=== PATIENT | female | born 1970 | race Caucasian/White ===

== ENCOUNTER 2024-12-22 16:06 | Inpatient (IN) | payer MEDICAID ==
[~2024-12-22] VITALS: Ht 167.6 cm; Wt 130.0 kg
[2024-12-23] VITALS (36 sets, daily range): BP systolic 27–233; BP diastolic 16–223; PULSE 58–98; RESP 14–23; TEMP 99.6–100.8; O2SAT 93–98
[2024-12-23] MEDS: SODIUM CHL 0.9% 50 ML ONE (09:04)
[2024-12-23] MEDS: PHENYLEPHRINE IV 250 ML IV ONE (16:09)
--- NOTE | 2024-12-23 16:37 | DVHINCON2 ---
Date Seen: Dec 23, 2024 Referring Physician MD Neha Reason for Consultation VFib arrest History of Present Illness This is a 54-year-old female patient who presents to this facility status post VFib arrest. The patient was initially seen at [facility] where she presented for bilateral lower extremity edema for two months. During the course of that hospitalization, the patient had VFib arrest (rhythm strips reviewed---brought by EMS). According to documentation provided by [facility], the patient had three episodes of VFib arrest in which she underwent CPR and achieved return of spontaneous circulation. She has been transferred to this facility for higher level of care. At the time of assessment, the patient is chemically sedated and mechanically ventilated. There are no laboratory values available from this facility given the patient just arrived. Patient is in sinus tachycardia on youth nutritional monitor at time of assessment. History obtained from patient's Keshav. Significant past medical history includes congestive heart failure, hypertension, dyslipidemia, type 2 diabetes mellitus, tobacco use, history of polysubstance use and morbid obesity. He also mentions that the patient drinks vodka daily and is not compliant with her prescribed medications. Past Medical History Past medical history reviewed. No other significant than mentioned above. Past Surgical History Denies any previous surgeries Family History Family history reviewed. Social History Daily consumption of vodka Prior history of methamphetamine use, quit approximately 10 years ago Fifteen pack-year history, smokes a half pack per day Home Meds Home medications reviewed. Review of Systems Constitutional: No symptom reported Ears, Nose, & Throat: No symptom reported Eyes: No symptom reported Neurological: No symptoms reported Pulmonary/Respiratory: No symptoms reported Cardiovascular: VFib arrest Gastrointestinal: No symptom reported Genitourinary: No symptom reported Musculoskeletal: No symptom reported Skin: No symptom reported Psychiatric: No symptom reported Endocrine: No symptom reported Hematologic/Lymphatic: No symptom reported Physical Exam General Appearance: Calm, relaxed. Morbidly obese Pulmonary/Respiratory: Clear, bilateral breaths sounds. Cardiovascular/Chest: Regular rate and rhythm. Peripheral Pulses: 2+ Radial (R). 2+ Radial (L). Abdominal Exam: Normal bowel sounds Ankle Exam: A +pitting edema Lower extremities: 3+ pitting edema Neuro/Mental Status: Chemically sedated Thoughts/Psych: Deferred Appearance: No acute distress. Skin Exam: Cyanosis to bilateral feet. Arrhythmia to bilateral lower extremities Assessment Ventricular fibrillation arrest status post cardiopulmonary resuscitation Rule out coronary artery disease Rule out structural heart disease Hypertension Dyslipidemia Type 2 diabetes mellitus Tobacco use Alcohol use History of methamphetamine use Morbid obesity Medical noncompliance Plan/Recommendation We will continue with the following plan/recommendations (Dr. Stockton): Case discussed with . The patient was transferred to this facility from [facility]. [employer] accepted patient from sales representative metals Dr. Solomon. According to records, the patient went into VFib arrest multiple times and is status post CPR with return of spontaneous circulation. The patient is currently on vasopressors for hemodynamic support. The patient will undergo a coronary angiogram with left heart catheterization.The procedure was discussed with the patient's Keshav in full detail including risks and benefits. Risks include but are not limited to bleeding, contrast-induced nephropathy, coronary dissection, stroke, and even . The patient's understands and is agreeable for the patient to undergo the procedure. The patient will be taken to the laboratory sample carrier at soonest availability. Thank you for allowing us to care for this patient. Please call with any questions or concerns. Critical care time spent: 44 minutes This medical document was created using an electronic medical record system with voice recognition software and computerized dictation system. Although this document has been carefully reviewed, there might still be some phonetic and typographical errors. Occasional wrong-word or ``sound-alike substitutions may have occurred due to the inherent limitations of voice recognition software. These areas are purely typographical due to imperfections of the software programs and do not reflect any compromise in the patient's medical care. Please read the chart carefully and recognize, using context, where these substitutions have occurred. Plan discussed with: Spouse NYHA Physical activity limitations: NA Date of Service: Dec 23, 2024 Billing Provider: DL MENDES Cardiology Common Codes: 77980-QJDGNZU INP/OBS CARE (High) Cardiology Consultation Codes: 17999-CYTPWNOLS CONSULT <45MIN DL MENDES Dec 23, 2024 16:37
[2024-12-23] MEDS: IODIXANOL 320MG/ML 100ML BTL IV ONE (16:42)
[2024-12-23] MEDS: HEPARIN IN NS 1000Units/500mL 1,500 ML ONE (16:43)
[2024-12-23] MEDS: ANGIOMAX 250 MG VIAL IV ONE (16:48)
[2024-12-23] MEDS: LIDOCAINE 2%HCL (LOCAL ANESTH.) INJ 20ML MDV ONE (16:48)
[2024-12-23 17:03] LABS: Hematocrit 43.1 % (36.0-46.0); Hemoglobin 13.9 g/dL (12.2-16.2); Mean Corpuscular Hemoglobin 30.6 pg (28.0-32.0); Mean Corpuscular Volume 94.6 fL (80.0-100.0); Nucleated Red Blood Cells % 0.1 %
[2024-12-23 17:10] LABS: Calcium 8.9 mg/dL (8.7-10.4); Carbon Dioxide 31 mmol/L (20-31)
[2024-12-23 17:15] LABS: BUN/Creatinine Ratio 16.7 (10.0-20.0)
[2024-12-23 17:16] LABS: Magnesium 2.0 mg/dL (1.6-2.6)
[2024-12-23 17:17] LABS: Cholesterol 102 mg/dL (< 200); INR 1.31 (0.9-1.15); Partial Thromboplastin Time 33.2 SEC (24.5-34.5); Prothrombin Time 13.5 sec (9.3-11.8)
[2024-12-23 17:27] LABS: Blood Urea Nitrogen 24 mg/dL (9-23); Glucose 121 mg/dL (74-106); HDL Cholesterol 19 mg/dL (40-59); Triglycerides 152 mg/dL (< 150)
--- NOTE | 2024-12-23 18:16 | DVHOP2 ---
Operative Report - 2 Report Details Date: 12/23/24 Preop Diagnosis: Status post cardiac arrest. Postop Diagnosis: Cardiogenic shock. Septic shock. Severe left main disease. Surgeon: Ronaldo Stockton MD Anesthesiologist: Conscious sedation Anesthesia: Mac, Local Consent: The patient was informed of the risks and benefits of the procedure. These include but are not limited to complications of anesthesia, postoperative infection, incomplete relief of symptoms, recurrence of symptoms, damage to blood vessels, nerves and tendons, deep venous thrombosis, pulmonary embolism and possible need for repeat surgery in the future. Complications: No complications Findings: Severe left main disease. Cardiogenic shock. Cardiomyopathy. Dilated ischemic cardiomyopathy. Indications for Surgery: Cardiogenic shock. Status post cardiac arrest Name of Procedure Performed Left heart catheterization right heart catheterization. Bilateral cine coronary angiography. Left ventriculography. Procedure Details Procedure Details: Prior local anesthesia with 2% lidocaine to the right groin and full informed consent obtained the patient was prepped and draped in usual fashion followed by placement of a six Macedonian sheath into the right femoral artery through which six Macedonian Kathleen catheters were used to cannulate both right and left coronary ostia and a six Macedonian pigtail was used for ventriculography. A six Macedonian sheath was advanced into the right femoral vein and a Woodbourne-Susy catheter was advanced into the right atrium right ventricle pulmonary artery capillary wedge pressure positions where pressures were obtained and recorded. Cardiac outputs determined by the thermodilution technique in triplicate. O2 saturations were not obtained Hemodynamics: Right atrial pressure was 15. Right ventricular pressure was 50/15. Pulmonary artery pressure was 50/30. End-diastolic pressure was 25-30. Left ventricular end-diastolic pressure was 25. Aortic blood pressure was 90/60. No gradient across the aortic valve on pullback. Cardiac output was approximately 4.2 by the thermodilution technique. Coronary anatomy: The RCA is a large vessel it is dominant. It is normal in its proximal mid and distal segments PDA and posterolateral branches are normal. : The left main is a large vessel it has an ostial 75-85% stenosis. It is hazy it is difficult to fully visualize. It gives off left anterior descending coronary artery. The left anterior descending is large and is free of significant disease. Diagonals and septals are normal. The circumflex is large with two obtuse marginal branches free of significant disease. Ventriculography in the GOODWIN projection shows an EF of 10%. Dilated left ventricle. Impression: Elevated left ventricular end-diastolic pressure at rest. Elevated capillary wedge pressure. Pulmonary hypertension. Severe left main disease. Markedly decreased left ventricular ejection fraction. Recommendations: Patient has a very high mortality. We will leave a Woodbourne-Susy catheter in place. Optimize hemodynamics as much as possible. Consider high- risk angioplasty with Impella support if patient stabilizes. Poor overall prognosis family is made aware. Condition Critical Disposition Still a Patient Date of Service: Dec 23, 2024 Billing Provider: RONALDO STOCKTON Sr., MD Cardiology Common Codes: 11014-CZMDGPT INP/OBS CARE (High) Cardiology Procedure Codes: 74603-CDHA HEART CATH W/INTRA INJ, 00148-P/R & L HEART CATH FOR LVG, 79717-ZBL & PLCMT OF FLOW DIR CATH RONALDO STOCKTON Sr., MD Dec 23, 2024 18:15
[2024-12-23 18:17] LABS: Hematocrit 44.1 % (36.0-46.0); Hemoglobin 14.2 g/dL (12.2-16.2); Mean Corpuscular Hemoglobin 30.7 pg (28.0-32.0); Mean Corpuscular Volume 95.6 fL (80.0-100.0); Nucleated Red Blood Cells % 0.3 %
[2024-12-23] MEDS: PROPOFOL 100 ML IV SCH (18:30)
[2024-12-23 18:33] LABS: Anion Gap 9 (5-15)
[2024-12-23 18:35] LABS: Chloride 106 mmol/L (98-107); Potassium 4.7 mmol/L (3.5-5.1); Sodium 146 mmol/L (136-145)
[2024-12-23] MEDS: VASOPRESSIN 20 UNITS in SODIUM CHL 0.9% 99 ML IV SCH (18:45)
[2024-12-23 19:46] LABS: Base Excess 3.3 mmol/L (-2.0-3.0)
[2024-12-23 19:54] LABS: Alanine Aminotransferase 36 U/L (7-40); Anion Gap 12 (5-15); BUN/Creatinine Ratio 18.6 (10.0-20.0); Carbon Dioxide 30 mmol/L (20-31); Chloride 105 mmol/L (98-107); Potassium 4.8 mmol/L (3.5-5.1); Total Protein 6.3 g/dL (5.7-8.2)
[2024-12-23 19:57] LABS: Albumin 3.1 g/dL (3.2-4.8); Alkaline Phosphatase 132 U/L (46-116); Bilirubin, Total 2.4 mg/dL (0.2-1.0); Blood Urea Nitrogen 26 mg/dL (9-23); Calcium 8.6 mg/dL (8.7-10.4); Glucose 124 mg/dL (74-106); Sodium 147 mmol/L (136-145)
[2024-12-23] MEDS: PHENYLEPHRINE INJ 80 MG in SODIUM CHL 0.9% 242 ML IV SCH (19:59)
[2024-12-23 20:00] LABS: Lactic Acid w/Reflex 2.8 mmol/L (0.4-2.0)
[2024-12-23] MEDS: NOREPINEPHRINE BITARTRATE 32 MG in SODIUM CHL 0.9% 218 ML IV SCH (20:19)
--- NOTE | 2024-12-23 20:26 | DVHHPRES ---
History of Present Illness Resident Creating Document: LAISHA HALL RESIDENT History of Present Illness Patient is a 54-year-old male with a medical history of congestive heart failure, hypertension, type 2 diabetes mellitus, hypertension, polysubstance use, morbid obesity was brought in to the hospital after she underwent c ardiopulmonary arrest at [facility] where she was admitted for bilateral lower extremity edema for 2 months and worsening shortness of breath. According to documentation from the previous hospital patient had 3 episodes of VFib arrest in which she underwent CPR and achieved ROSC. She was transferred related to [facility] for higher level of care. Past medical history: As per HPI Past surgical history: None Social history: Patient lives with the her partner and has prior history of methamphetamine use, smokes half a pack per day and has 15 pack year smoking history Review of Systems Review of Systems Seen and examined at the bedside Sedated and on mechanical ventilation Allergies: Coded Allergies: NO KNOWN ALLERGIES (Unverified , 12/23/24) Medications Current Medications Medications Dose Ordered Sig/Malcolm Route Start Time Stop Time Status Last Admin Dose Admin Phenylephrine HCl 80 mg/Sodium Chloride 250 ml @ 7.5 mls/hr Q24H IV 12/23/24 17:30 Norepinephrine Bitartrate 32 mg/ Sodium Chloride 250 ml @ 0.938 mls/ hr Q24H IV 12/23/24 17:30 Propofol 100 ml @ 3.9 mls/hr Q24H IV 12/23/24 18:30 Midazolam HCl 50 ml @ 1 mls/hr Q24H IV 12/23/24 18:30 Pantoprazole Sodium 40 mg DAILY IV 12/24/24 10:00 Vasopressin 20 units/Sodium Chloride 100 ml @ 9 mls/hr Q11H7M IV 12/23/24 18:45 Enoxaparin Sodium 40 mg DAILY SC 12/24/24 10:00 UNV Exam Vital Signs Vital Signs Date Time Temp Pulse Resp B/P (MAP) Pulse Ox O2 Delivery O2 Flow Rate FiO2 12/23/24 16:32 90 22 138/100 (113) 97 55 Exam Gen - no pallor, no icterus, no cyanosis, no clubbing, 3+ bilateral lower ex tremity pitting edema . Skin - Patients skin is warm and dry. Reddish discoloration on bilateral lower extremities HEENT - normocephalic, atraumatic, dry mucous membranes. Neck - JVD could not be assessed Pulmonary - B/L decreased breath sounds with rales cardiovascular - regular S1,S2 heard, no added sounds, no murmurs heard. GI - soft, obese abdomen. Bowel sounds hypoactive Neurological - patient is on mechanical ventilation and sedated. Bilateral pupils equal and reactive, gag reflex hypoactive since the patient is sedated Labs/Xrays Labs Test 12/23/24 19:50 12/23/24 19:40 12/23/24 19:01 12/23/24 16:46 Range/Units Blood Gas Specimen Type Mixed venous Blood Gas Sample Site Other Blood Gas Patient Temperature 37.0 Arterial Blood Date Drawn [id number] Lee Test N/a Mixed Venous Blood PO2 < 36.5 35.0-45.0 mmHg Mixed Venous Blood O2 Saturation 63.0 L 75.0-99.0 % Mixed Venous Blood Oxyhemoglobin 62.3 60.0-80.0 % Mixed Venous Bld Carboxyhemoglobin 0.8 0.0-3.9 % Mixed Venous Blood Methemoglobin 0.3 0.0-0.5 % Blood Gas Total Hemoglobin 14.80 12.0-16.0 g/dL Blood Gas Set Respiration Rate 22.0 Blood Gas Modality Vent - ac FiO2 % 55.0 Blood Gas Tidal Volume 450.0 Blood Gas PEEP or CPAP 8.0 Blood Gas Comments via pa swan-susy Arterial Blood pH 7.438 7.350-7.450 Arterial Blood Partial Pressure CO2 42.2 32.0-45.0 mmHg Arterial Blood Partial Pressure O2 96.7 83.0-108.0 mmHg Arterial Blood HCO3 27.9 21.0-28.0 mmol/L Arterial Blood Oxygen Saturation 97.2 94.0-98.0 % Arterial Blood Base Excess 3.3 H -2.0-3.0 mmol/L Arterial Blood Oxyhemoglobin 96.2 94.0-98.0 % Arterial Blood Carboxyhemoglobin 0.6 0.5-1.5 % Arterial Blood Methemoglobin 0.4 0.0-1.5 % Sodium Level 147 H 136-145 mmol/L Potassium Level 4.8 3.5-5.1 mmol/L Chloride Level 105 98-107 mmol/L Carbon Dioxide Level 30 20-31 mmol/L Anion Gap 12 5-15 Blood Urea Nitrogen 26 H 9-23 mg/dL Creatinine 1.40 H 0.550-1.02 mg/dL Glomerular Filtration Rate Calc 45 >90 mL/min BUN/Creatinine Ratio 18.6 10.0-20.0 Serum Glucose 124 H 74-106 mg/dL Lactic Acid Level 2.8 *H 0.4-2.0 mmol/L Calcium Level 8.6 L 8.7-10.4 mg/dL Total Bilirubin 2.4 H 0.2-1.0 mg/dL Aspartate Amino Transferase (AST) 105 H 13-40 U/L Alanine Aminotransferase (ALT) 36 7-40 U/L Alkaline Phosphatase 132 H 46-116 U/L Total Protein 6.3 5.7-8.2 g/dL Albumin 3.1 L 3.2-4.8 g/dL Eosinophils (%) (Auto) 2.3 0.0-7.0 % Eosinophils # (Auto) 0.2 0-0.8 10 ^3/uL Basophils # (Auto) 0.1 0-0.2 10 ^3/uL Nucleated Red Blood Cells 0.3 % Prothrombin Time 13.5 H 9.3-11.8 sec Prothrombin Time INR 1.31 H 0.9-1.15 Activated Partial Thromboplast Time 33.2 24.5-34.5 SEC Magnesium Level 2.0 1.6-2.6 mg/dL Triglycerides Level 152 H < 150 mg/dL Cholesterol Level 102 < 200 mg/dL LDL Cholesterol 66 < 100 mg/dL HDL Cholesterol 19 L 40-59 mg/dL Thyroid Stimulating Hormone (TSH) 1.57 0.55-4.78 uIU/mL Test 12/23/24 16:24 Range/Units POC Glucose 129 H 70-106 mg/dl SEPSIS Sepsis Screen Physician Orders Ventilator Orders (12/23/24 16:04) Obtain Consent For: (12/23/24 16:34) Shave Both Groins (12/23/24 16:34) Provide Education Materials (12/23/24 16:34) Obtain Consent For Anesthesia (12/23/24 16:34) Echo 2d Mode Cardiac Dop (12/23/24 16:34) Electrocardigram (12/23/24 16:42) Cl Left Heart Cath (12/23/24 16:48) Sodium Chl 0.9% (Ns... W/Phenylephrine I (12/23/24 17:30) Sodium Chl 0.9% (Ns... W/Norepinephrine (12/23/24 17:30) Admit (12/23/24 17:41) Notify Of Changes From Base (12/23/24 17:41) Propofol (Diprivan) (12/23/24 18:30) Midazolam Drip 50 Mg/50ml (Versed Drip 5 (12/23/24 18:30) Pantoprazole (Protonix) (12/24/24 10:00) Sodium Chl 0.9% (So... W/Vasopressin (12/23/24 18:45) Npo Except For Medications (12/23/24 18:33) Npo (Nothing By Mouth) Diet (12/23/24 Breakfast) Magnesium (12/24/24 04:00) Phosphorus (12/24/24 04:00) Comprehensive Metabolic Panel (12/24/24 04:00) Complete Blood Count (12/24/24 04:00) Strict I & O Q4HR (12/23/24 18:33) Urinalysis (12/23/24 18:33) Urine Bacterial Culture (12/23/24 18:33) Blood Culture (12/23/24 18:33) Respiratory Culture W/ Gs (12/23/24 18:33) Abg W/ Co-Ox (12/23/24 18:33) Complete Blood Count (12/23/24 18:45) Venous Blood Gas (12/23/24 18:45) Communication Order (12/23/24 18:47) Communication Order (12/23/24 18:51) Chest Portable (12/23/24 19:28) Enoxaparin Sodium (Lovenox) (12/24/24 10:00) Vital Signs Date Time Temp Pulse Resp B/P (MAP) Pulse Ox O2 Delivery O2 Flow Rate FiO2 12/23/24 16:32 90 22 138/100 (113) 97 55 Laboratory Tests Test 12/23/24 16:32 12/23/24 16:46 12/23/24 19:01 White Blood Count 9.6 10^3/uL (4.4-10.8) 9.8 10^3/uL (4.4-10.8) Pending Lactic Acid Level 2.8 mmol/L (0.4-2.0) *H Assessment/Plan Assessment/Plan Acute hypoxic respiratory failure likely from cardiogenic shock Pulmonary hypertension likely type 1 versus type 2 Bilateral pulmonary edema Left pleural effusion - mechanical ventilation 5 FIO2 50% Vt 450 - IV diuresis ( maintaining map of more than 65 and a capillary wedge pressure 20) Cardiogenic shock Ventricular fibrillation status post cardiopulmonary arrest with ROSC Acute on chronic heart failure exacerbation with reduced ejection fraction 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 SVR 1283 - we will diurese the patient currently with a 1 dose of 40 Lasix IV - maintain map of more than 65 - vasopressors currently on norepinephrine, trending down on the phenylephrine - amiodarone at 0.5 mg/minute, lidocaine at 2 mL/minute - keep potassium above 4.2 and Mag above 2.2 - strict input and output - as per customer service consultant, high-risk angioplasty with Impella support to be considered at a later date if patient stabilizes Goals of care discussed with the patient's family including boyfrienjessy Gomez, explained about patient's critical condition and poor prognosis for over 27 minutes. Full code Critical care time spent excluding procedures: 120 minutes Plan discussed with Dr. Zamarripa Plan discussed with: Other (Boyfriend, SHIMON Peraza) My Orders Orders - LAISHA HALL Procedure Category Date Status Time Enoxaparin Sodium PHA 12/24/24 Logged (Lovenox) 10:00 Date of Service: Dec 23, 2024 Billing Provider: CORTEZ ZAMARRIPA MD Common Visit Codes: 17744-LZSSQHOX CARE 30-74 MIN, 30914-JLLCNEPH CARE-EACH +30MIN (crit care time 120 minutes) Secondary Visit Codes: 33199-CFCXDHJJ CARE PLAN 30 MINUTES LAISHA HALL Dec 23, 2024 20:26 CORTEZ ZAMARRIPA MD Dec 23, 2024 23:49
--- NOTE | 2024-12-23 20:28 | PRN ---
Misceleneous Note Note Note 12/23 19.00 Height 167 Weight 130 BSA 2.46 SaO2 97 SvO2 63 Hb 14 Lact 2.8 HR 73 CO 4.8 CI 2.0 MAP 95 CVP 18 SVR 1283 12/24 10.00 Height 167 Weight 130 BSA 2.46 SaO2 97 SvO2 60 Hb 12 Lact 2.2 HR 71 CO 5.2 CI 2.1 MAP 75 CVP 12 SVR 969 CORTEZ TENA MD Dec 23, 2024 20:28
[2024-12-23 20:51] LABS: Hematocrit 45.8 % (36.0-46.0); Hemoglobin 14.3 g/dL (12.2-16.2); Mean Corpuscular Hemoglobin 30.6 pg (28.0-32.0); Mean Corpuscular Volume 97.8 fL (80.0-100.0); Nucleated Red Blood Cells % 0.2 %
[2024-12-23] MEDS: FUROSEMIDE 40 MG/4 ML VIAL IV ONE (21:11)
[2024-12-23] MEDS: MAGNESIUM SULFATE 1GM/100ML 100 ML IV ONE (21:17)
--- NOTE | 2024-12-23 21:20 | DVH ---
CHEST RADIOGRAPH Indication: interval Technique: Single frontal view of the chest was obtained Comparison: XR CHEST 1 VIEW on DOS: 12/21/24, XR CHEST 1 VIEW on DOS: 12/18/24, XR CHEST 1 VIEW on DOS: 02/01/20 FINDINGS: Lines and Tubes: Endotracheal tube is 4.9 cm above the carrie. Right internal jugular catheter is in the superior vena cava above the right atrium. Enteric tube below the left diaphragm in the stomach Lungs: No focal consolidation. Pleura: No effusion. No pneumothorax. Cardiomediastinal contours: Unremarkable Bones: No acute osseous abnormality. IMPRESSION: 1. Mild cardiomegaly 2. Mildly prominent pulmonary vascular markings. Endotracheal tube in place 4.9 cm above the carrie. 3. Right internal jugular catheter in the superior vena cava above the right atrium. 4. Enteric tube below the left diaphragm in the stomach.
[2024-12-23] MEDS: LIDOCAINE 4MG/ML IV SOLN 500 ML IV SCH (22:11)
[2024-12-23] MEDS: MIDAZOLAM DRIP 50 mg/50mL 50 ML IV SCH (22:11)
[2024-12-23 22:25] LABS: Base Excess 4.2 mmol/L (-2.0-3.0)
[2024-12-23] MEDS: fentaNYL Drip 2500mCg/250mlNS 250 ML IV SCH (22:45)
--- NOTE | 2024-12-23 22:55 | DVH ---
Bilateral lower extremity venous duplex Clinical History: b/l lower ext swelling Comparison: None Technique: Duplex Doppler evaluation of the deep venous systems of both lower extremities from the common femora l veins to the popliteal veins including color Doppler and spectral/pulsed waveform analysis was perf ormed. Findings: RIGHT SIDE: The common femoral, great saphenous and proximal superficial femoral veins were not adequately visual ized. The midportion superficial femoral vein demonstrates appropriate compressibility and waveform variabi lity. The popliteal vein demonstrates appropriate compressibility and waveform variability. There is normal compressibility at the tibioperoneal trunk. LEFT SIDE: The common femoral vein demonstrates appropriate compressibility and waveform variability. There is compressibility/patency of the great saphenous vein at the proximal thigh. The femoral vein demonstrates appropriate compressibility and waveform variability. The deep femoral vein demonstrates appropriate compressibility and waveform variability. The popliteal vein demonstrates appropriate compressibility and waveform variability. There is normal compressibility at the tibioperoneal trunk. Moderately enlarged left inguinal lymph node measures up to 3.6 cm. Impression: 1. No right or left femoropopliteal venous thrombosis within the visualized vascular structures. 2. Moderately enlarged left inguinal lymph node measures up to 3.6 cm.
[2024-12-23] MEDS ORDERED: VANCOMYCIN PER PHARMACY 0 MG IV SCH (23:45)
[2024-12-24] VITALS (110 sets, daily range): BP systolic 25–128; BP diastolic 18–85; PULSE 63–82; RESP 11–23; TEMP 98–98.4; O2SAT 65–100
[2024-12-24 00:12] LABS: Hematocrit 41.0 % (36.0-46.0); Hemoglobin 13.2 g/dL (12.2-16.2); Mean Corpuscular Hemoglobin 30.3 pg (28.0-32.0); Mean Corpuscular Volume 94.3 fL (80.0-100.0); Nucleated Red Blood Cells % 0.1 %
[2024-12-24 00:25] LABS: INR 1.28 (0.9-1.15); Partial Thromboplastin Time 32.5 SEC (24.5-34.5); Prothrombin Time 13.2 sec (9.3-11.8)
[2024-12-24 00:40] LABS: Potassium 4.2 mmol/L (3.5-5.1)
[2024-12-24 00:47] LABS: Magnesium 2.1 mg/dL (1.6-2.6)
[2024-12-24] MEDS: VANCOMYCIN 1GM/250ML IV ONE ×2 (00:51→01:00)
[2024-12-24] MEDS: HEPARIN SODIUM (PORCINE) 5000 UNITS/ML 1ML VIAL IV ONE (01:11)
[2024-12-24] MEDS: HEPARIN DRIP/D5W 100UNITS/ML 250 ML IV SCH ×2 (01:17→10:48)
[2024-12-24] MEDS: CEFEPIME 1GM/50ML 50 ML IV ONE (02:21)
[2024-12-24 03:30] LABS: Hematocrit 40.8 % (36.0-46.0); Hemoglobin 13.1 g/dL (12.2-16.2); Mean Corpuscular Hemoglobin 30.6 pg (28.0-32.0); Mean Corpuscular Volume 95.2 fL (80.0-100.0); Nucleated Red Blood Cells % 0.1 %
[2024-12-24] MEDS: AMIODARONE 360mg/200mL PREMIX 200 ML IV SCH (03:40)
[2024-12-24 03:51] LABS: Alanine Aminotransferase 29 U/L (7-40); Albumin 3.0 g/dL (3.2-4.8); Alkaline Phosphatase 117 U/L (46-116); Anion Gap 11 (5-15); BUN/Creatinine Ratio 16.9 (10.0-20.0); Blood Urea Nitrogen 21 mg/dL (9-23); Calcium 8.7 mg/dL (8.7-10.4); Carbon Dioxide 29 mmol/L (20-31); Chloride 105 mmol/L (98-107); Glucose 155 mg/dL (74-106); Magnesium 2.0 mg/dL (1.6-2.6); Potassium 4.0 mmol/L (3.5-5.1); Sodium 145 mmol/L (136-145); Total Protein 6.3 g/dL (5.7-8.2)
[2024-12-24 03:56] LABS: Bilirubin, Total 2.2 mg/dL (0.2-1.0)
[2024-12-24] MEDS: POTASSIUM CHL 20MEQ/100ML 100 ML IV SCH ×2 (05:48→15:30)
[2024-12-24] MEDS ORDERED: FUROSEMIDE 40 MG/4 ML VIAL IV SCH (06:00)
[2024-12-24] MEDS: LIDOCAINE 4MG/ML IV SOLN 500 ML IV SCH (07:00)
[2024-12-24] MEDS ORDERED: HEPARIN DRIP/D5W 100UNITS/ML 250 ML IV SCH (07:45)
[2024-12-24 07:58] LABS: INR 1.28 (0.9-1.15); Partial Thromboplastin Time 66.4 SEC (24.5-34.5); Prothrombin Time 13.2 sec (9.3-11.8)
--- NOTE | 2024-12-24 08:27 | DVH ---
CHEST RADIOGRAPH Indication: ET intubation Technique: Single frontal view of the chest was obtained COMPARISON: XY CHEST PORTABLE on DOS: 12/23/24, CT ANGIO CHEST on DOS: 12/21/24, XR CHEST 1 VIEW on DO S: 12/21/24, XR CHEST 1 VIEW on DOS: 12/18/24, XR CHEST 2 VIEWS on DOS: 05/27/22 FINDINGS: Lines and Tubes: Endotracheal tube, enteric catheter and right central venous catheter in satisfactor y position. Lungs: Unchanged pulmonary vascular congestion. Pleura: No effusion. No pneumothorax. Cardiomediastinal contours: Unchanged cardiomegaly. Bones: Unremarkable. IMPRESSION: Lines and tubes in satisfactory position. No significant interval change.
[2024-12-24] MEDS: MAGNESIUM SULFATE 1GM/100ML 100 ML IV SCH (08:59)
--- NOTE | 2024-12-24 09:12 | CONS ---
Pharmacy Clinical Information: HEPARIN PER ACS PROTOCOL: APTT result of 66.4 received from draw on 12/24/24 @0700. Continue rate of 1000 units per hour (10ml/hr). Orders read back and confirmed with SHIMON Draper @0912. Next APTT scheduled for 1300. ALVIN MARIN PHARMACIST Dec 24, 2024 09:12
[2024-12-24 09:59] LABS: Base Excess 2.8 mmol/L (-2.0-3.0)
[2024-12-24] MEDS ORDERED: ENOXAPARIN SOD 40 MG/0.4 ML SYRINGE SC SCH (10:00)
[2024-12-24] MEDS: FUROSEMIDE 40 MG/4 ML VIAL IV ONE ×2 (10:15→17:13)
[2024-12-24] MEDS: CEFEPIME 1GM/50ML 50 ML IV SCH (10:44)
[2024-12-24] MEDS: PANTOPRAZOLE 40 MG/10 ML VIAL INJ IV SCH (10:45)
--- NOTE | 2024-12-24 12:35 | ECG ---
[facility] Test Date: 2024-12-23 Test Time: 16:50:34 Pat Name: ALFREDITO SPURLOCKV[place]LE Department: ICU Room: [address] [place] [address] A Gender: F Director Chemistry: Robel Cohen : 1970 Requested By: RONALDO STOCKTON Order Number: [id number] Reading MD: Ronaldo Stockton Measurements Intervals [place] Rate: 84 P: 20 IN: 159 QRS: 64 QRSD: 134 T: 59 QT: 423 QTc: 501 Interpretive Statements Sinus rhythm Probable left atrial enlargement Left ventricular hypertrophy Anterior infarct, old Electronically Signed On 12-24-2024 20:01:01 PDT by Ronaldo Stockton Please click the below link to view image of tracing.
[2024-12-24] MEDS: VANCOMYCIN 1GM/250ML KIT 250 ML IV SCH (13:05)
[2024-12-24 13:30] LABS: INR 1.23 (0.9-1.15); Partial Thromboplastin Time 62.6 SEC (24.5-34.5); Prothrombin Time 12.8 sec (9.3-11.8)
--- NOTE | 2024-12-24 13:39 | DVHPNRES ---
Progress Note Date Seen: Dec 24, 2024 Resident Creating Document: RENATO BARTLETT RESIDENT Medical Necessity Reason Pt with a Central, PICC or Fol: Yes The following are medically ne: Central Line Reason for goldstein catheter: Strict I&O Subjective Review of Systems Patient seen and examined in ICU Currently on ventilation with respiratory rate 22, tidal volume 450, FiO2 45%, peep of five CVP ranging between 10-14 Currently on amiodarone drip, lidocaine drip, heparin drip, midazolam, propofol, norepinephrine. Patient has right femoral [place]-Susy, right IJ central line, left radial A-line. No any other night events Objective vital signs Vital Sign Date Time Temp Pulse Resp B/P (MAP) Pulse Ox O2 Delivery O2 Flow Rate FiO2 12/24/24 11:55 75 22 96/54 (68) 96 40 12/24/24 11:15 98.4 98.4 12/24/24 10:00 Mechanical Ventilator+ Total Intake and Output 12/23/24 12/23/24 12/24/24 15:00 23:00 07:00 Intake Total 642.066 ml 731.174 ml Output Total 2350 ml Balance 642.066 ml -1618.826 ml medications Current Medications Medications Dose Ordered Sig/Malcolm Route Start Time Stop Time Status Last Admin Dose Admin Phenylephrine HCl 80 mg/Sodium Chloride 250 ml @ 7.5 mls/hr Q24H IV 12/23/24 17:30 12/23/24 19:59 16.875 MLS/HR Norepinephrine Bitartrate 32 mg/ Sodium Chloride 250 ml @ 0.938 mls/ hr Q24H IV 12/23/24 17:30 12/24/24 13:06 12.188 MLS/HR Propofol 100 ml @ 3.9 mls/hr Q24H IV 12/23/24 18:30 12/24/24 10:45 15.6 MLS/HR Midazolam HCl 50 ml @ 1 mls/hr Q24H IV 12/23/24 18:30 12/24/24 10:44 9 MLS/HR Pantoprazole Sodium 40 mg DAILY IV 12/24/24 10:00 12/24/24 10:45 40 MG Vasopressin 20 units/Sodium Chloride 100 ml @ 9 mls/hr Q11H7M IV 12/23/24 18:45 Lidocaine HCl 500 ml @ 15 mls/hr Q24H IV 12/23/24 20:30 12/23/24 22:11 30 MLS/HR Amiodarone HCL/ Dextrose 200 ml @ 16.66 mls/ hr Q12H IV 12/24/24 03:00 12/24/24 13:07 16.66 MLS/HR Fentanyl Citrate 250 ml @ 2.5 mls/hr Q24H IV 12/23/24 22:45 Vancomycin HCl 0 ml @ 0 mls/hr UD IV 12/23/24 23:45 Cefepime HCl 50 ml @ 12.5 mls/hr Q12HR IV 12/24/24 10:00 12/24/24 10:44 12.5 MLS/HR Heparin Sodium/ Dextrose 250 ml @ 15.6 mls/hr Q16H2M IV 12/24/24 07:45 UNV Vancomycin HCl 250 ml @ 250 mls/hr Q12H IV 12/24/24 13:00 12/24/24 13:05 250 MLS/HR Heparin Sodium/ Dextrose 250 ml @ 10 mls/hr Q24H IV 12/24/24 09:15 12/24/24 10:48 10 MLS/HR Examination General Appearance: Intubated and sedated Head Exam: Normal inspection Neck Exam: Normal inspection. Non-tender. Normal alignment Pulmonary/Respiratory: Chest non-tender. Crackles over bilateral lower lung base. Cardiovascular/Chest: Regular rate and rhythm. No murmurs. No JVD. Peripheral Pulses: 2+ Radial (R). 2+ Radial (L). 2+ Pedal (R). 2+ Pedal (L) Abdominal Exam: Normal bowel sounds. Soft. Nontender. No hepatospenomegaly. No masses Ankle Exam: 3+ bilateral ankle swelling Lower extremities: 4+ bilateral pitting edema. Neuro/Mental Status: Sedated, pupillary reflex present. Gag reflex present. laboratory and microbiology Laboratory Tests 12/24/24 02:30 Test 12/24/24 02:30 Range/Units Serum Glucose 155 H 74-106 mg/dL Microbiology Date/Time Source Procedure Growth Status 12/23/24 18:50 Sputum Gram Stain - Final Resulted 12/23/24 18:50 Sputum Respiratory Culture - Preliminary Resulted Problem List/Assessment/Plan Problem List/Assessment/Plan Cardiogenic shock Ventricular fibrillation, status post cardiac arrest Acute HFrEF Coronary artery disease with left main coronary artery ostial stenosis 75-85% History of methamphetamine use Severe Ischemic cardiomyopathy with LVEF 10% -end-diastolic pressure initially was 25-30, improved pulmonary artery wedge pressure to around 14-18 mmHg. Continue with IV Lasix. today Elevated mean pulmonary artery pressure at 20 mmHg.(SaO2 73.4, mixed venous blood gas oxygen saturation 60.6.), peripheral vascular resistance at 1000 dynes-sec/cm5. -continue Levophed, Levophed requirement around 20 mics per minute. -currently on heparin drip, aspirin 81 mg p.o. daily, atorvastatin 40 mg p.o. daily. -IV Lasix 40 mg one time dose given. Continue IV Lasix 40 mg b.i.d. -strict I&O -goal magnesium greater than two, potassium greater than four. -electrophysiology and cardiology on board: Given extensive coronary artery disease left main ostial stenosis around 75-85% stenosis, HFrEF with ejection fraction of 10%, severe ischemic cardiomyopathy, recommended higher level of care for high-risk PCI, possible needing Impella and resources with Cardiothoracic surgery. Social service consultation for higher level of care transfer. -continue with lidocaine and amiodarone drip given recent ventricular fibrillation with cardiac arrest. -coronary angiogram on 12/23/2024:he RCA is a large vessel it is dominant. It is normal in its proximal mid and distal segments PDA and posterolateral branches are normal. The left main is a large vessel it has an ostial 75-85% stenosis. It is hazy it is difficult to fully visualize. It gives off left anterior descending coronary artery. The left anterior descending is large and is free of significant disease. Diagonals and septals are normal. The circumflex is large with two obtuse marginal branches free of significant disease. Ventriculography in the GOODWIN projection shows an EF of 10%. Dilated left ventricle. -continue to monitor pulmonary artery wedge pressure with Humarock-Susy Possible mixed shock : Cardiogenic shock, septic shock Acute hypoxic respiratory failure with bilateral pulmonary edema, left pleural effusion -on mechanical ventilation -IV diuresis with Lasix 40 mg b.i.d. -empiric IV antibiotic with cefepime and vancomycin. -pending blood culture -respiratory culture preliminary: No growth -MRSA negative -lactic acidosis: 2.8, 2.2 Severe pulmonary artery hypertension -H[place]ock-Susy: Mean arterial pulmonary pressure: 50/30, right ventricular pressure around 50/15. JEANNA due to VMN likely due to acute HFrEF -creatinine 1.24, GFR 52 on 12/24/2024 -strict I&O -continue Lasix 40 mg IV b.i.d. Type 2 diabetes mellitus -continue serial glucose monitor. -glucose 155 mg/dL on 12/24/2024 Transaminitis likely due to heart failure -continue to monitor liver function Elevated PT/APTT/ INR on heparin drip -continue to monitor coagulation panel -heparin drip protocol Morbid obesity with BMI 46.3 kg/meters squared History of medical noncompliance History of alcohol use History of methamphetamine use Poor prognosis PUD prophylaxis: Protonix DVT prophylaxis: Heparin Right femoral [place]-Susy Right IJ central line Left radial A-line Goldstein catheter Poor prognosis Extensive plan of care discussed with daughter John, discussed current medical condition including vitals, laboratory, imaging studies, current recommendation from Cardiology/coronary clinical specialist, agreed with the transfer to higher level of care, continue current management. Critical care time spent greater than 100 minutes Plan discussed with Dr. Zamarripa Plan discussed with: Daughter, Other (RN) My Orders My Orders Orders - RENATO BARTLETT Procedure Category Date Status Time Mixed Venous Blood Gas RT 12/24/24 Logged 10:15 Abg W/ Co-Ox RT 12/24/24 Logged 15:45 Mixed Venous Blood Gas RT 12/24/24 Logged 15:45 Hemoglobin & LAB 12/24/24 Transmitted Hematocrit 15:00 RENATO BARTLETT RESIDENT Dec 24, 2024 13:39
[2024-12-24 15:27] LABS: Hematocrit 37.6 % (36.0-46.0); Hemoglobin 12.2 g/dL (12.2-16.2)
--- NOTE | 2024-12-24 15:28 | DVHPN2 ---
Progress Note - Dictate Date Seen: Dec 24, 2024 Has the PT tested + for MRSA If YES, has PT been informed?: No Medical Necessity Reason Pt with a Central, PICC or Fol: No vital signs Vital Sign Date Time Temp Pulse Resp B/P (MAP) Pulse Ox O2 Delivery O2 Flow Rate FiO2 12/24/24 14:11 74 22 103/57 (72) 92 45 12/24/24 14:01 Mechanical Ventilator+ 12/24/24 11:15 98.4 98.4 Total Intake and Output 12/23/24 12/23/24 12/24/24 15:00 23:00 07:00 Intake Total 642.066 ml 731.174 ml Output Total 2350 ml Balance 642.066 ml -1618.826 ml medications Current Medications Medications Dose Ordered Sig/Malcolm Route Start Time Stop Time Status Last Admin Dose Admin Phenylephrine HCl 80 mg/Sodium Chloride 250 ml @ 7.5 mls/hr Q24H IV 12/23/24 17:30 12/23/24 19:59 16.875 MLS/HR Norepinephrine Bitartrate 32 mg/ Sodium Chloride 250 ml @ 0.938 mls/ hr Q24H IV 12/23/24 17:30 12/24/24 13:06 12.188 MLS/HR Propofol 100 ml @ 3.9 mls/hr Q24H IV 12/23/24 18:30 12/24/24 10:45 15.6 MLS/HR Midazolam HCl 50 ml @ 1 mls/hr Q24H IV 12/23/24 18:30 12/24/24 10:44 9 MLS/HR Pantoprazole Sodium 40 mg DAILY IV 12/24/24 10:00 12/24/24 10:45 40 MG Vasopressin 20 units/Sodium Chloride 100 ml @ 9 mls/hr Q11H7M IV 12/23/24 18:45 Lidocaine HCl 500 ml @ 15 mls/hr Q24H IV 12/23/24 20:30 12/23/24 22:11 30 MLS/HR Amiodarone HCL/ Dextrose 200 ml @ 16.66 mls/ hr Q12H IV 12/24/24 03:00 12/24/24 13:07 16.66 MLS/HR Fentanyl Citrate 250 ml @ 2.5 mls/hr Q24H IV 12/23/24 22:45 Vancomycin HCl 0 ml @ 0 mls/hr UD IV 12/23/24 23:45 Cefepime HCl 50 ml @ 12.5 mls/hr Q12HR IV 12/24/24 10:00 12/24/24 10:44 12.5 MLS/HR Heparin Sodium/ Dextrose 250 ml @ 15.6 mls/hr Q16H2M IV 12/24/24 07:45 UNV Vancomycin HCl 250 ml @ 250 mls/hr Q12H IV 12/24/24 13:00 12/24/24 13:05 250 MLS/HR Heparin Sodium/ Dextrose 250 ml @ 10 mls/hr Q24H IV 12/24/24 09:15 12/24/24 10:48 10 MLS/HR laboratory and microbiology Laboratory Tests 12/24/24 02:30 Test 12/24/24 02:30 Range/Units Serum Glucose 155 H 74-106 mg/dL Assessment/Plan [employer] with rounds Acute hypoxemic respiratory failure Recurrent ventricular arrhythmias Congestive heart failure Cardiomyopathy Patient transferred from [facility] Seen and examined in the ICU Currently sedated Amiodarone drip Lidocaine drip [place]-Susy placed Wedge 12 mmHg Chest x-ray Hardware placed correctly Pulmonary congestion Imaging studies reviewed Management plan Status post angiogram left heart catheterization Reveal severe triple vessel ischemic disease Not amenable to angioplasty Continue vent support Antiarrhythmics Follow up on ABG Daily x-rays adjust vent settings monitor renal function replace lytes gi and dvt prop management per Card crit care time 35 min Plan discussed with: Other (rn) GREGG AVILEZ MD Dec 24, 2024 15:28
--- NOTE | 2024-12-24 15:54 | DVHPN2 ---
Subjective No cardiac events reported Remained in sinus rhythm Remained intubated and sedated Changes from previous H/P or p: No Changes Objective Vitals Vital Signs Date Time Temp Pulse Resp B/P (MAP) Pulse Ox O2 Delivery O2 Flow Rate FiO2 12/24/24 15:48 98.3 98.3 12/24/24 15:32 22 96 Mechanical Ventilator+ 45 45 12/24/24 15:30 69 Intake/Output Intake and Output 12/24/24 07:00 Intake Total 1473.400 ml Output Total 2350 ml Balance -876.600 ml Intake IV Total 1473.400 ml Output Urine Total 2350 ml Medications Current Medications Medications Dose Ordered Sig/Malcolm Route Start Time Stop Time Status Last Admin Dose Admin Phenylephrine HCl 80 mg/Sodium Chloride 250 ml @ 7.5 mls/hr Q24H IV 12/23/24 17:30 12/23/24 19:59 16.875 MLS/HR Norepinephrine Bitartrate 32 mg/ Sodium Chloride 250 ml @ 0.938 mls/ hr Q24H IV 12/23/24 17:30 12/24/24 13:06 12.188 MLS/HR Propofol 100 ml @ 3.9 mls/hr Q24H IV 12/23/24 18:30 12/24/24 10:45 15.6 MLS/HR Midazolam HCl 50 ml @ 1 mls/hr Q24H IV 12/23/24 18:30 12/24/24 10:44 9 MLS/HR Pantoprazole Sodium 40 mg DAILY IV 12/24/24 10:00 12/24/24 10:45 40 MG Vasopressin 20 units/Sodium Chloride 100 ml @ 9 mls/hr Q11H7M IV 12/23/24 18:45 Lidocaine HCl 500 ml @ 15 mls/hr Q24H IV 12/23/24 20:30 12/23/24 22:11 30 MLS/HR Amiodarone HCL/ Dextrose 200 ml @ 16.66 mls/ hr Q12H IV 12/24/24 03:00 12/24/24 13:07 16.66 MLS/HR Fentanyl Citrate 250 ml @ 2.5 mls/hr Q24H IV 12/23/24 22:45 Vancomycin HCl 0 ml @ 0 mls/hr UD IV 12/23/24 23:45 Cefepime HCl 50 ml @ 12.5 mls/hr Q12HR IV 12/24/24 10:00 12/24/24 10:44 12.5 MLS/HR Heparin Sodium/ Dextrose 250 ml @ 15.6 mls/hr Q16H2M IV 12/24/24 07:45 UNV Vancomycin HCl 250 ml @ 250 mls/hr Q12H IV 12/24/24 13:00 12/24/24 13:05 250 MLS/HR Heparin Sodium/ Dextrose 250 ml @ 10 mls/hr Q24H IV 12/24/24 09:15 12/24/24 10:48 10 MLS/HR Potassium Chloride 100 ml @ 50 mls/hr Q2H IV 12/24/24 15:30 12/24/24 17:29 Laboratory Results Laboratory Tests 12/24/24 02:30 12/24/24 14:59 Chemistry Test 12/23/24 16:46 12/23/24 19:01 12/23/24 23:56 12/24/24 02:30 Calcium Level 8.9 mg/dL (8.7-10.4) 8.6 mg/dL (8.7-10.4) L 8.7 mg/dL (8.7-10.4) Magnesium Level 2.0 mg/dL (1.6-2.6) 2.1 mg/dL (1.6-2.6) 2.0 mg/dL (1.6-2.6) Albumin 3.1 g/dL (3.2-4.8) L 3.0 g/dL (3.2-4.8) L Total Protein 6.3 g/dL (5.7-8.2) 6.3 g/dL (5.7-8.2) Phosphorus Level 2.9 mg/dL (2.4-5.1) Coagulation Test 12/23/24 16:46 12/23/24 23:56 12/24/24 07:00 12/24/24 12:56 Prothrombin Time 13.5 sec (9.3-11.8) H 13.2 sec (9.3-11.8) H 13.2 sec (9.3-11.8) H 12.8 sec (9.3-11.8) H Prothrombin Time INR 1.31 (0.9-1.15) H 1.28 (0.9-1.15) H 1.28 (0.9-1.15) H 1.23 (0.9-1.15) H Activated Partial Thromboplast Time 33.2 SEC (24.5-34.5) 32.5 SEC (24.5-34.5) 66.4 SEC (24.5-34.5) H 62.6 SEC (24.5-34.5) H Lipid panel Test 12/23/24 16:46 Cholesterol Level 102 mg/dL (< 200) HDL Cholesterol 19 mg/dL (40-59) L Triglycerides Level 152 mg/dL (< 150) H LFT Test 12/23/24 19:01 12/24/24 02:30 Alanine Aminotransferase (ALT) 36 U/L (7-40) 29 U/L (7-40) Alkaline Phosphatase 132 U/L (46-116) H 117 U/L (46-116) H Aspartate Amino Transferase (AST) 105 U/L (13-40) H 79 U/L (13-40) H Total Bilirubin 2.4 mg/dL (0.2-1.0) H 2.2 mg/dL (0.2-1.0) H HgA1c, TSH Test 12/23/24 16:46 Thyroid Stimulating Hormone (TSH) 1.57 uIU/mL (0.55-4.78) Blood Gas Results Test 12/23/24 19:40 12/23/24 19:50 12/23/24 22:19 12/24/24 09:20 Arterial Blood pH 7.438 (7.350-7.450) 7.464 (7.350-7.450) 7.454 (7.350-7.450) FiO2 % 55.0 55.0 50.0 50.0 Test 12/24/24 10:34 FiO2 % 40.0 Microbiology Microbiology Date/Time Source Procedure Growth Status 12/23/24 23:59 Nose MRSA Screen - Final Complete 12/23/24 18:50 Sputum Gram Stain - Final Resulted 12/23/24 18:50 Sputum Respiratory Culture - Preliminary Resulted Assessment/Plan Assessment/Plan Ventricular fibrillation arrest status post cardiopulmonary resuscitation Rule out coronary artery disease Rule out structural heart disease Hypertension Dyslipidemia Type 2 diabetes mellitus Tobacco use Alcohol use History of methamphetamine use Morbid obesity Medical noncompliance Plan/Recommendation We will continue with the following plan/recommendations (Dr. Stockton): 12/24/24---remained on amiodarone drip. Continue with vasopressor for BP support. Echo pending results. Close cardiac surveillance. Case discussed with . The patient was transferred to this facility from [facility]. [facility] [facility] accepted patient from service delivery consultant Dr. Solomon. According to records, the patient went into VFib arrest multiple times and is status post CPR with return of spontaneous circulation. The patient is currently on vasopressors for hemodynamic support. The patient will undergo a coronary angiogram with left heart catheterization.The procedure was discussed with the patient's Keshav in full detail including risks and benefits. Risks include but are not limited to bleeding, contrast-induced nephropathy, coronary dissection, stroke, and even . The patient's understands and is agreeable for the patient to undergo the procedure. The patient will be taken to the manufacturing lab technician at soonest availability. Thank you for allowing us to care for this patient. Please call with any questions or concerns. Critical care time spent: 44 minutes This medical document was created using an electronic medical record system with voice recognition software and computerized dictation system. Although this document has been carefully reviewed, there might still be some phonetic and typographical errors. Occasional wrong-word or ``sound-alike substitutions may have occurred due to the inherent limitations of voice recognition software. These areas are purely typographical due to imperfections of the software programs and do not reflect any compromise in the patient's medical care. Please read the chart carefully and recognize, using context, where these substitutions have occurred. Plan discussed with: RN Plan discussed with: Patient, Other (RN) Date of Service: Dec 24, 2024 Billing Provider: RONALDO STOCKTON Sr., MD Common Visit Codes: CONSULT ONLY Consultation Codes: [id number] CONSULT <45MIN JOSEPH REYES WANT AD SUPERVISOR Dec 24, 2024 15:54
[2024-12-24 16:49] LABS: Base Excess 4.8 mmol/L (-2.0-3.0)
--- NOTE | 2024-12-24 16:51 | DVHINCON2 ---
Date of service: Dec 24, 2024 Referring Physician Anuradha Garrison NP Reason for Consultation Ventricular Fibrillation Arrest History of Present Illness This is a 54-year old female who initially presented as HLOC transfer 12/23/2024 from [facility] due to experienced VF arrest to undergo ischemic workup by cardiac catheterization. Throughout course of admission at [facility] patient at that had initially presented with reported bilateral lower extremity swelling subsequently found to have acute DVT's involving the bilateral superficial femoral veins which she had subsequently been initiated on anticoagulation therapy. VQ scan at that time had ruled out pulmonary embolism. Echocardiogram performed at [facility] during that admission had revealed a severely reduced LVEF of 15%. Of note, upon speaking with the patient, she had reported prior amphetamine use from before however UDS during admission had been found negative. While undergoing management, patient had experienced multiple VF arrests requiring CPR with external shocks resulting in ROSC. Patient had subsequently been initiated on Amiodarone and Lidocaine infusions for VF rhythm management and subsequently transferred to presented facility to undergo ischemic workup to rule out obstructive coronary artery disease. Upon arrival to present facility, patient had underwent subsequent cardiac catheterization 12/23/2024 revealing evidence for 75-85% lesion involving left main/ostial and given nature of severe left main disease patient had been considered very high risk for mortality which recommendation had been made to consider high-risk angioplasty at a facility that is equipped with impella and in-house CTS team. At present present time of consultation, patient remains intubated and mechanically ventilated on sedation. Remains on Amiodarone and Lidocaine for rhythm management of previously observed VF. Currently sinus rhythm on telemetry review with no further evidence for ventricular arrhythmias at present time. Remains anticoagulated with Heparin infusion. Repeat bilateral venous duplex had revealed no evidence for further deep vein thrombosis involving the lower extremities. Of note, chart mentions patient is known to have previous history of polysubstance abuse and is known to drink vodka daily which she is furthermore non-adherence with her prescribed med ications on an outpatient basis. Electrophysiology services were subsequently involved by Interventional Cardiology request for EP aspects of care. Past medical history includes systolic heart failure, ventricular fibrillation arrest, deep vein thrombosis involving bilateral superficial femoral veins, diabetes mellitus, hypertension, hyperlipidemia, and morbid obesity. Patient is an active tobacco smoker, is known to consume Vodka on a daily basis, and has prior history of methamphetamine abuse which it has been reported she had quit approximately 10 years ago. Echocardiogram: ([facility] 12/19/2024) CONCLUSION: The study revealed end-stage dilated cardiomyopathy. Ejection fraction in the range of only 15%. Severe global left ventricular hypokinesis. End-stage dilated cardiomyopathy with an ejection fraction of only 15% and pulmonary hypertension noted with right ventricular systolic pressure of 41 mmHg. Cardiac Catheterization: ([facility] 12/23/2024) Hemodynamics: Right atrial pressure was 15. Right ventricular pressure was 50/15. Pulmonary artery pressure was 50/30. End-diastolic pressure was 25-30. Left ventricular end-diastolic pressure was 25. Aortic blood pressure was 90/60. No gradient across the aortic valve on pullback. Cardiac output was approximately 4.2 by the thermodilution technique. Coronary anatomy: The RCA is a large vessel it is dominant. It is normal in its proximal mid and distal segments PDA and posterolateral branches are normal. : The left main is a large vessel it has an ostial 75-85% stenosis. It is hazy it is difficult to fully visualize. It gives off left anterior descending coronary artery. The left anterior descending is large and is free of significant disease. Diagonals and septals are normal. The circumflex is large with two obtuse marginal branches free of significant disease. Ventriculography in the GOODWIN projection shows an EF of 10%. Dilated left ventricle. Impression: Elevated left ventricular end-diastolic pressure at rest. Elevated capillary wedge pressure. Pulmonary hypertension. Severe left main disease. Markedly decreased left ventricular ejection fraction. Recommendations: Patient has a very high mortality. We will leave a [place] catheter in place. Optimize hemodynamics as much as possible. Consider high-risk angioplasty with Impella support if patient stabilizes. Poor overall prognosis family is made aware. Past Medical History Reviewed Past Surgical History Reviewed Family History: Diabetes mellitus Allergies: Coded Allergies: NO KNOWN ALLERGIES (Unverified , 12/23/24) Current Medications Current Medications Medications (Trade) Dose Ordered Sig/Malcolm Route PRN Reason Start Time Stop Time Status Last Admin Phenylephrine HCl 80 mg/Sodium Chloride 250 ml @ 7.5 mls/hr Q24H IV 12/23/24 17:30 12/23/24 19:59 Norepinephrine Bitartrate 32 mg/ Sodium Chloride 250 ml @ 0.938 mls/ hr Q24H IV 12/23/24 17:30 12/24/24 13:06 Propofol 100 ml @ 3.9 mls/hr Q24H IV 12/23/24 18:30 12/24/24 10:45 Midazolam HCl 50 ml @ 1 mls/hr Q24H IV 12/23/24 18:30 12/24/24 10:44 Pantoprazole Sodium (Protonix) 40 mg DAILY IV 12/24/24 10:00 12/24/24 10:45 Vasopressin 20 units/Sodium Chloride 100 ml @ 9 mls/hr Q11H7M IV 12/23/24 18:45 Furosemide (Lasix Injection) 40 mg BIDD IV 12/24/24 06:00 12/23/24 20:13 DC Enoxaparin Sodium (Lovenox) 40 mg DAILY SC 12/24/24 10:00 12/23/24 20:17 DC Lidocaine HCl 500 ml @ 15 mls/hr Q24H IV 12/23/24 20:30 12/23/24 22:11 Amiodarone HCL/ Dextrose 200 ml @ 16.66 mls/ hr Q12H IV 12/24/24 03:00 12/24/24 13:07 Fentanyl Citrate 250 ml @ 2.5 mls/hr Q24H IV 12/23/24 22:45 Heparin Sodium/ Dextrose 250 ml @ 10 mls/hr Q24H IV 12/23/24 23:45 12/24/24 09:14 DC 12/24/24 01:17 Vancomycin HCl 0 ml @ 0 mls/hr UD IV 12/23/24 23:45 Cefepime HCl 50 ml @ 12.5 mls/hr Q12HR IV 12/24/24 10:00 12/24/24 10:44 Potassium Chloride 100 ml @ 50 mls/hr Q2H IV 12/24/24 05:00 12/24/24 08:59 DC 12/24/24 05:48 Magnesium Sulfate/ Dextrose 100 ml @ 100 mls/hr Q1HR IV 12/24/24 05:00 12/24/24 06:59 DC 12/24/24 14:16 Heparin Sodium/ Dextrose 250 ml @ 15.6 mls/hr Q16H2M IV 12/24/24 07:45 UNV Vancomycin HCl 250 ml @ 250 mls/hr Q12H IV 12/24/24 13:00 12/24/24 13:05 Heparin Sodium/ Dextrose 250 ml @ 10 mls/hr Q24H IV 12/24/24 09:15 12/24/24 10:48 Review of Systems Unable to perform due to patients status Vital Signs Vital Signs Date Time Temp Pulse Resp B/P (MAP) Pulse Ox O2 Delivery O2 Flow Rate FiO2 12/24/24 14:11 74 22 103/57 (72) 92 45 12/24/24 14:01 Mechanical Ventilator+ 12/24/24 11:15 98.4 98.4 Physical Exam Heart: S1 and S2 regular. The patient is in sinus rhythm. Lungs: Scattered rhonchi. Abdomen: Benign. Extremities: Distal pulses palpable, 2+. Bilateral peripheral edema present Labs/Diagnostic Data Labs Test 12/24/24 14:59 12/24/24 12:56 12/24/24 10:34 12/24/24 09:20 Range/Units Prothrombin Time 12.8 H 9.3-11.8 sec Prothrombin Time INR 1.23 H 0.9-1.15 Activated Partial Thromboplast Time 62.6 H 24.5-34.5 SEC Blood Gas Specimen Type Mixed venous Blood Gas Sample Site Other Blood Gas Patient Temperature 37.0 Arterial Blood Date Drawn [id number] Lee Test N/a Mixed Venous Blood PO2 < 36.5 35.0-45.0 mmHg Mixed Venous Blood O2 Saturation 60.6 L 75.0-99.0 % Mixed Venous Blood Oxyhemoglobin 59.9 L 60.0-80.0 % Mixed Venous Bld Carboxyhemoglobin 0.8 0.0-3.9 % Mixed Venous Blood Methemoglobin 0.3 0.0-0.5 % Blood Gas Total Hemoglobin 14.00 12.0-16.0 g/dL Blood Gas Set Respiration Rate 22.0 Blood Gas Modality Vent - ac FiO2 % 40.0 Blood Gas Tidal Volume 450.0 Blood Gas PEEP or CPAP 5.0 Arterial Blood pH 7.454 H 7.350-7.450 Arterial Blood Partial Pressure CO2 39.1 32.0-45.0 mmHg Arterial Blood Partial Pressure O2 94.4 83.0-108.0 mmHg Arterial Blood HCO3 26.8 21.0-28.0 mmol/L Arterial Blood Oxygen Saturation 96.9 94.0-98.0 % Arterial Blood Base Excess 2.8 -2.0-3.0 mmol/L Arterial Blood Oxyhemoglobin 95.7 94.0-98.0 % Arterial Blood Carboxyhemoglobin 0.8 0.5-1.5 % Arterial Blood Methemoglobin 0.4 0.0-1.5 % Test 12/24/24 02:30 12/23/24 20:45 12/23/24 19:50 12/23/24 16:46 Range/Units White Blood Count 9.6 4.4-10.8 10^3/uL Red Blood Count 4.28 4.0-5.20 10^6/uL Mean Corpuscular Volume 95.2 80.0-100.0 fL Mean Corpuscular Hemoglobin 30.6 28.0-32.0 pg Mean Corpuscular Hemoglobin Concent 32.1 32.0-36.0 g/dL Red Cell Distribution Width 18.6 H 11.8-14.3 % Platelet Count 189 140-450 10^3/uL Mean Platelet Volume 8.7 6.9-10.8 fL Neutrophils (%) (Auto) 74.7 37.0-80.0 % Lymphocytes (%) (Auto) 12.8 10.0-50.0 % Monocytes (%) (Auto) 7.9 0.0-12.0 % Eosinophils (%) (Auto) 3.5 0.0-7.0 % Basophils (%) (Auto) 1.1 0.0-2.0 % Neutrophils # (Auto) 7.1 1.6-8.6 10 ^3/uL Lymphocytes # (Auto) 1.2 0.4-5.4 10 ^3/uL Monocytes # (Auto) 0.8 0-1.3 10 ^3/uL Eosinophils # (Auto) 0.3 0-0.8 10 ^3/uL Basophils # (Auto) 0.1 0-0.2 10 ^3/uL Nucleated Red Blood Cells 0.1 % Sodium Level 145 136-145 mmol/L Potassium Level 4.0 3.5-5.1 mmol/L Chloride Level 105 98-107 mmol/L Carbon Dioxide Level 29 20-31 mmol/L Anion Gap 11 5-15 Blood Urea Nitrogen 21 9-23 mg/dL Creatinine 1.24 H 0.550-1.02 mg/dL Glomerular Filtration Rate Calc 52 >90 mL/min BUN/Creatinine Ratio 16.9 10.0-20.0 Serum Glucose 155 H 74-106 mg/dL Calcium Level 8.7 8.7-10.4 mg/dL Phosphorus Level 2.9 2.4-5.1 mg/dL Magnesium Level 2.0 1.6-2.6 mg/dL Total Bilirubin 2.2 H 0.2-1.0 mg/dL Aspartate Amino Transferase (AST) 79 H 13-40 U/L Alanine Aminotransferase (ALT) 29 7-40 U/L Alkaline Phosphatase 117 H 46-116 U/L Total Protein 6.3 5.7-8.2 g/dL Albumin 3.0 L 3.2-4.8 g/dL Lactic Acid Level 2.2 *H 0.4-2.0 mmol/L Blood Gas Comments via pa swan-susy Triglycerides Level 152 H < 150 mg/dL Cholesterol Level 102 < 200 mg/dL LDL Cholesterol 66 < 100 mg/dL HDL Cholesterol 19 L 40-59 mg/dL Thyroid Stimulating Hormone (TSH) 1.57 0.55-4.78 uIU/mL Test 12/23/24 16:24 Range/Units POC Glucose 129 H 70-106 mg/dl Microbiology Date/Time Source Procedure Growth Status 12/23/24 23:59 Nose MRSA Screen - Final Complete 12/23/24 18:50 Sputum Gram Stain - Final Resulted 12/23/24 18:50 Sputum Respiratory Culture - Preliminary Resulted Plan/Recommendation This is a 54-year old female who initially presented as HLOC transfer 12/23/2024 from [facility] due to experienced VF arrest to undergo ischemic workup by cardiac catheterization. Throughout course of admission at [facility] patient at that had initially presented with reported bilateral lower extremity swelling subsequently found to have acute DVT's involving the bilateral superficial femoral veins which she had subsequently been initiated on anticoagulation therapy. VQ scan at that time had ruled out pulmonary embolism. Echocardiogram performed at [facility] during that admission had revealed a severely reduced LVEF of 15%. Of note, upon speaking with the patient, she had reported prior amphetamine use from before however UDS during admission had been found negative. While undergoing management, patient had experienced multiple VF arrests requiring CPR with external shocks resulting in ROSC. Patient had subsequently been initiated on Amiodarone and Lidocaine infusions for VF rhythm management and subsequently transferred to presented facility to undergo ischemic workup to rule out obst ructive coronary artery disease. Upon arrival to present facility, patient had underwent subsequent cardiac catheterization 12/23/2024 revealing evidence for 75-85% lesion involving left main/ostial and given nature of severe left main disease patient had been considered very high risk for mortality which recommendation had been made to consider high-risk angioplasty at a facility that is equipped with impella and in-house CTS team. At present present time of consultation, patient remains intubated and mechanically ventilated on sedation. Remains on Amiodarone and Lidocaine for rhythm management of previously observed VF. Currently sinus rhythm on telemetry review with no further evidence for ventricular arrhythmias at present time. Remains anticoagulated with Heparin infusion. Repeat bilateral venous duplex had revealed no evidence for further deep vein thrombosis involving the lower extremities. Of note, chart mentions patient is known to have previous history of polysubstance abuse and is known to drink vodka daily which she is furthermore non-adherence with her prescribed medications on an outpatient basis. Electrophysiology services were subsequently involved by Interventional Cardiology request for EP aspects of care. Past medical history includes systolic heart failure, ventricular fibrillation arrest, deep vein thrombosis involving bilateral superficial femoral veins, diabetes mellitus, hypertension, hyperlipidemia, and morbid obesity. Patient is an active tobacco smoker, is known to consume Vodka on a daily basis, and has prior history of methamphetamine abuse which it has been reported she had quit approximately 10 years ago. Echocardiogram: ([facility] 12/19/2024) CONCLUSION: The study revealed end-stage dilated cardiomyopathy. Ejection fraction in the range of only 15%. Severe global left ventricular hypokinesis. End-stage dilated cardiomyopathy with an ejection fraction of only 15% and pulmonary hypertension noted with right ventricular systolic pressure of 41 mmHg. Cardiac Catheterization: ([facility] 12/23/2024) Hemodynamics: Right atrial pressure was 15. Right ventricular pressure was 50/15. Pulmonary artery pressure was 50/30. End-diastolic pressure was 25-30. Left ventricular end-diastolic pressure was 25. Aortic blood pressure was 90/60. No gradient across the aortic valve on pullback. Cardiac output was approximately 4.2 by the thermodilution technique. Coronary anatomy: The RCA is a large vessel it is dominant. It is normal in its proximal mid and distal segments PDA and posterolateral branches are normal. : The left main is a large vessel it has an ostial 75-85% stenosis. It is hazy it is difficult to fully visualize. It gives off left anterior descending coronary artery. The left anterior isabel cending is large and is free of significant disease. Diagonals and septals are normal. The circumflex is large with two obtuse marginal branches free of significant disease. Ventriculography in the GOODWIN projection shows an EF of 10%. Dilated left ventricle. Impression: Elevated left ventricular end-diastolic pressure at rest. Elevated capillary wedge pressure. Pulmonary hypertension. Severe left main disease. Markedly decreased left ventricular ejection fraction. Recommendations: Patient has a very high mortality. We will leave a [place] catheter in place. Optimize hemodynamics as much as possible. Consider high-risk angioplasty with Impella support if patient stabilizes. Poor overall prognosis family is made aware. ASSESSMENT: Repeated sustained ventricular fibrillation arrest requiring multiple external shocks, status post ROSC Obstructive coronary artery disease, severe left main/ostial disease (75-85% stenosis) Severe ischemic cardiomyopathy, LVEF of 15% 12/19/2024 Acute systolic heart failure, ischemic cardiomyopathy Previous history of methamphetamine abuse Acute kidney injury, improving Hypertension, history of Medical non-adherence Nicotine dependence Alcohol dependence Diabetes mellitus II Morbid obesity ELECTROPHYSIOLOGY SUGGESTIONS FOR MANAGEMENT: Recognizing presence of repeated sustained ventricular fibrillation resulting in multiple cardiac arrests in a patient found to have severe ischemic cardiomyopathy (LVEF of 15%) with presence of severe left main disease (75-85% stenosis), given high risk of mortality due to location and severity of newly discovered obstructive disease, recommendation from an EP perspective is to attempt HLOC transfer for pursue potential high-risk PCI at a facility that is equipped with impella and in-house CTS team. Recommendation during the interim is to proceed with Amiodarone and Lidocaine infusions as tolerated for rhythm management of VF. To proceed with close rate and rhythm surveillance and to sustain potassium levels greater than 4.0 as well as magnesium levels greater than 2.0. Proceed with optimized medical therapy and aggressive risk factor modification as concurrent conditions permit. Proceed with vasopressor therapy as warranted to sustain MAP greater than 65mmHg. Plan to wean vasopressors as hemodynamics permit. Recommend initiation of GDMT for systolic heart failure upon stabilization. Proceed with Heparin infusion as for now. Aspirin 81mg daily as well as Atorvastatin for further risk reduction. Proceed with empiric IV antibiotic therapy as managed by primary team. Pulmonary consulted for ventilator management/follow up recommendations. Await requested 2D Echocardiogram findings. Multiple attempts have been made by myself to call patients daughter regarding critical status and poor prognosis to determine goals of care however no successful contact has been made at this point. To proceed with the above mentioned plan. Remainder of cardiac management as per Interventional Cardiology services. Will proceed to follow from an EP perspective. Proceed with close observation for overt signs of fluid overload Proceed with strict intakes, outputs, and daily weights Proceed with close rate and rhythm surveillance Proceed with close hemodynamic surveillance Proceed with optimized blood pressure control Transfuse to sustain HGB level above 7.0 Sustain Magnesium level greater than 2.0 Sustain Potassium level greater than 4.0 Follow up renal function and electrolytes Management within the ICU Follow up bath design sales consultant recommendations Will proceed to follow from a cardiac perspective Further recommendations per clinical progression All available diagnostic labs, EKG's, and images were personally reviewed Patient's status, findings, and plan of care was reviewed and discussed with supervising physician Dr. Solomon, who is in agreement with current plan of care. Plan of care discussed with and agreed upon by family / primary RN Prognosis: Poor given multitude of comorbid conditions Thank you for allowing me to participate in the care of this patient. Further recommendations based on patients clinical course and progression, primary attending, and other consultants. Will continue to follow with primary attending. If you have any questions or concerns, please do not hesitate to contact me. A total of 75 minutes was spent reviewing the patient record, examining the pa tient, making a diagnostic and therapeutic plan, discussing this plan with medical personnel, following up on diagnostic studies and following the patient for clinical stability excluding any and all procedures. At least 50% of this time was spent in direct, [id number] contact. Plan discussed with: Other (Dinorah ROBINS ) [employer] [employer] [employer] Dec 24, 2024 16:51
--- NOTE | 2024-12-24 17:24 | DVH ---
EXAM: XY CHEST XRAY 1 VIEW HISTORY: CHF TECHNIQUE: 1 view of the chest COMPARISON: XY CHEST XRAY 1 VIEW on DOS: 12/24/24 FINDINGS/IMPRESSION: LUNGS: Worsening volume overload with atelectasis in bilateral lung bases, peripheral interstitial ed patrica and possible small bilateral pleural effusions. Retrocardiac opacification. MEDIASTINUM: Mild to moderate cardiomegaly. BONES: No acute osseous abnormality. OTHER: Endotracheal tube 3.7 cm above the carrie. Enteric tube in the central body of the stomach. R ight sided [place] catheter with distal tip of the distal right interlobar artery to proximal right segmental artery
[2024-12-24 19:08] LABS: Hematocrit 38.6 % (36.0-46.0); Hemoglobin 12.4 g/dL (12.2-16.2); Mean Corpuscular Hemoglobin 30.8 pg (28.0-32.0); Mean Corpuscular Volume 95.9 fL (80.0-100.0); Nucleated Red Blood Cells % 0.1 %
[2024-12-24 19:22] LABS: INR 1.19 (0.9-1.15); Partial Thromboplastin Time 64.2 SEC (24.5-34.5); Prothrombin Time 12.4 sec (9.3-11.8)
[2024-12-24 19:48] LABS: Alanine Aminotransferase 29 U/L (7-40); Alkaline Phosphatase 108 U/L (46-116); Anion Gap 8 (5-15); Carbon Dioxide 29 mmol/L (20-31); Chloride 104 mmol/L (98-107); Potassium 4.6 mmol/L (3.5-5.1); Sodium 141 mmol/L (136-145)
[2024-12-24 19:50] LABS: BUN/Creatinine Ratio 15.9 (10.0-20.0); Blood Urea Nitrogen 20 mg/dL (9-23); Magnesium 2.3 mg/dL (1.6-2.6); Total Protein 6.2 g/dL (5.7-8.2)
[2024-12-24 19:52] LABS: Albumin 3.0 g/dL (3.2-4.8); Bilirubin, Total 1.8 mg/dL (0.2-1.0); Calcium 8.5 mg/dL (8.7-10.4); Glucose 132 mg/dL (74-106)
[2024-12-24 22:44] LABS: Base Excess 2.1 mmol/L (-2.0-3.0)
[2024-12-24 22:59] LABS: Urine Protein, UAD Negative (Negative)
[2024-12-24] MEDS: ATORVASTATIN 20 MG TAB PO SCH (23:25)
[2024-12-25] VITALS (100 sets, daily range): BP systolic 34–127; BP diastolic 23–83; PULSE 63–79; RESP 15–24; TEMP 97.8–98; O2SAT 93–100
[2024-12-25 04:00] LABS: Hematocrit 36.5 % (36.0-46.0); Hemoglobin 12.0 g/dL (12.2-16.2); Mean Corpuscular Hemoglobin 31.1 pg (28.0-32.0); Mean Corpuscular Volume 94.8 fL (80.0-100.0); Nucleated Red Blood Cells % 0.2 %
[2024-12-25 04:12] LABS: Alanine Aminotransferase 25 U/L (7-40); Alkaline Phosphatase 111 U/L (46-116); Anion Gap 11 (5-15); BUN/Creatinine Ratio 20.2 (10.0-20.0); Blood Urea Nitrogen 22 mg/dL (9-23); Carbon Dioxide 29 mmol/L (20-31); Chloride 102 mmol/L (98-107); Potassium 4.1 mmol/L (3.5-5.1); Sodium 142 mmol/L (136-145); Total Protein 6.1 g/dL (5.7-8.2)
[2024-12-25 05:11] LABS: Albumin 2.9 g/dL (3.2-4.8); Bilirubin, Total 1.8 mg/dL (0.2-1.0); Calcium 8.4 mg/dL (8.7-10.4); Glucose 155 mg/dL (74-106)
--- NOTE | 2024-12-25 05:58 | DVH ---
EXAM: XY CHEST XRAY 1 VIEW HISTORY: on vent COMPARISON: XY CHEST XRAY 1 VIEW on DOS: 12/24/24, XY CHEST XRAY 1 VIEW on DOS: 12/24/24, XY CHEST PO RTABLE on DOS: 12/23/24, XR CHEST 1 VIEW on DOS: 12/21/24, XR CHEST 1 VIEW on DOS: 12/18/24 TECHNIQUE: Portable AP view of the chest was performed. FINDINGS: Endotracheal tube is re-identified with its tip 2.5 cm above the carrie. OG tube and right IJ centra l line are re-identified. There is continued opacification of the left lung base, obscuring the left hemidiaphragm. Right basilar infiltrate seen previously has improved in the interim. No pneumothorax . There is diffuse interstitial prominence, improved. The heart is enlarged. IMPRESSION: 1. Mechanical ventilation with tubes and lines as above. 2. Cardiomegaly and diffuse interstitial prominence suggestive of CHF. This has improved since the pr evious day. 3. Stable left basilar opacity may be due to a combination of consolidation and effusion. Right basil ar opacity has improved in the interim.
[2024-12-25] MEDS: FUROSEMIDE 40 MG/4 ML VIAL IV SCH (06:20)
[2024-12-25] MEDS: MAGNESIUM SULFATE 1GM/100ML 100 ML IV ONE (06:25)
[2024-12-25 06:30] LABS: Base Excess 1.1 mmol/L (-2.0-3.0)
[2024-12-25] MEDS: POTASSIUM CHL 20MEQ/100ML 100 ML IV ONE (07:29)
[2024-12-25] MEDS: MAGNESIUM SULFATE 1GM/100ML 100 ML IV SCH (09:51)
[2024-12-25] MEDS ORDERED: Glucerna 1.2 Cal 1Liter BOTTLE GT SCH (10:15)
[2024-12-25 11:52] LABS: INR 1.18 (0.9-1.15); Partial Thromboplastin Time 51.3 SEC (24.5-34.5); Prothrombin Time 12.3 sec (9.3-11.8)
--- NOTE | 2024-12-25 13:29 | DVHPN2 ---
Progress Note - Dictate Date Seen: Dec 25, 2024 Has the PT tested + for MRSA If YES, has PT been informed?: No Medical Necessity Reason Pt with a Central, PICC or Fol: Yes The following are medically ne: Central Line Reason for goldstein catheter: Strict I&O vital signs Vital Sign Date Time Temp Pulse Resp B/P (MAP) Pulse Ox O2 Delivery O2 Flow Rate FiO2 12/25/24 13:18 67 22 108/65 (79) 98 50 12/25/24 12:00 Mechanical Ventilator+ 12/25/24 12:00 97.9 97.9 Total Intake and Output 12/24/24 12/24/24 12/25/24 15:00 23:00 07:00 Intake Total 1179.34 ml 793.679 ml 1040.018 ml Balance 1179.34 ml 793.679 ml 1040.018 ml medications Current Medications Medications Dose Ordered Sig/Malcolm Route Start Time Stop Time Status Last Admin Dose Admin Norepinephrine Bitartrate 32 mg/ Sodium Chloride 250 ml @ 0.938 mls/ hr Q24H IV 12/23/24 17:30 12/24/24 13:06 12.188 MLS/HR Propofol 100 ml @ 3.9 mls/hr Q24H IV 12/23/24 18:30 12/25/24 12:22 23.4 MLS/HR Midazolam HCl 50 ml @ 1 mls/hr Q24H IV 12/23/24 18:30 12/25/24 13:06 15 MLS/HR Pantoprazole Sodium 40 mg DAILY IV 12/24/24 10:00 12/25/24 09:53 40 MG Vasopressin 20 units/Sodium Chloride 100 ml @ 9 mls/hr Q11H7M IV 12/23/24 18:45 12/24/24 19:28 9 MLS/HR Amiodarone HCL/ Dextrose 200 ml @ 16.66 mls/ hr Q12H IV 12/24/24 03:00 12/25/24 11:54 16.66 MLS/HR Fentanyl Citrate 250 ml @ 2.5 mls/hr Q24H IV 12/23/24 22:45 Vancomycin HCl 0 ml @ 0 mls/hr UD IV 12/23/24 23:45 Heparin Sodium/ Dextrose 250 ml @ 15.6 mls/hr Q16H2M IV 12/24/24 07:45 UNV Vancomycin HCl 250 ml @ 250 mls/hr Q12H IV 12/24/24 13:00 12/25/24 12:52 250 MLS/HR Heparin Sodium/ Dextrose 250 ml @ 10 mls/hr Q24H IV 12/24/24 09:15 12/25/24 00:17 10 MLS/HR Aspirin 81 mg DAILY PO 12/25/24 10:00 12/25/24 09:53 81 MG Atorvastatin Calcium 40 mg HS PO 12/24/24 22:00 12/24/24 23:25 40 MG Lidocaine HCl 500 ml @ 15 mls/hr Q24H IV 12/24/24 07:00 12/25/24 09:52 30 MLS/HR Furosemide 40 mg BIDD IV 12/25/24 06:00 12/25/24 06:20 40 MG Enteral Nutritional Formula 1,000 ml 30ML/HR GT 12/25/24 10:15 Cefepime HCl 50 ml @ 12.5 mls/hr Q8H IV 12/25/24 18:00 laboratory and microbiology Laboratory Tests 12/25/24 03:20 Test 12/25/24 03:20 Range/Units Serum Glucose 155 H 74-106 mg/dL Assessment/Plan Plan/Recommendation This is a 54-year old female who initially presented as HLOC transfer 12/23/[address] [facility] [place] to experienced VF arrest to undergo ischemic workup by cardiac catheterization. Throughout course of admission at [facility] [place] at that had initially presented with reported bilateral lower extremity swelling subsequently found to have acute DVT's involving the bilateral superficial femoral veins which she had subsequently been initiated on anticoagulation therapy. VQ scan at that time had ruled out pulmonary embolism. Echocardiogram performed at [facility] [place] that admission had revealed a severely reduced LVEF of 15%. Of note, upon speaking with the patient, she had reported prior amphetamine use from before however UDS during admission had been found negative. While undergoing management, patient had experienced multiple VF arrests requiring CPR with external shocks resulting in ROSC. Patient had subsequently been initiated on Amiodarone and Lidocaine infusions for VF rhythm management and subsequently transferred to presented facility to undergo ischemic workup to rule out obstructive coronary artery disease. Upon arrival to present facility, patient had underwent subsequent cardiac catheterization 12/23/2024 revealing evidence for 75-85% lesion involving left main/ostial and given nature of severe left main disease patient had been considered very high risk for mortality which recommendation had been made to consider high-risk angioplasty at a facility that is equipped with impella and in-house CTS team. At present present time of consultation, patient remains intubated and mechanically ventilated on sedation. Remains on Amiodarone and Lidocaine for rhythm management of previously observed VF. Currently sinus rhythm on telemetry review with no further evidence for ventricular arrhythmias at present time. Remains anticoagulated with Heparin infusion. Repeat bilateral venous duplex had revealed no evidence for further deep vein thrombosis involving the lower extremities. Of note, chart mentions patient is known to have previous history of polysubstance abuse and is known to drink vodka daily which she is furthermore non-adherence with her prescribed medications on an outpatient basis. Electrophysiology services were subsequently involved by Interventional Cardiology request for EP aspects of care. Past medical history includes systolic heart failure, ventricular fibrillation arrest, deep vein thrombosis involving bilateral superficial femoral veins, diabetes mellitus, hypertension, hyperlipidemia, and morbid obesity. Patient is an active tobacco smoker, is known to consume Vodka on a daily basis, and has prior history of methamphetamine abuse which it has been reported she had quit approximately 10 years ago. Echocardiogram: [place] [place] CONCLUSION: The study revealed end-stage dilated cardiomyopathy. Ejection fraction in the range of only 15%. Severe global left ventricular hypokinesis. End-stage dilated cardiomyopathy with an ejection fraction of only 15% and pulmonary hypertension noted with right ventricular systolic pressure of 41 mmHg. Cardiac Catheterization: ([facility] 12/23/2024) Hemodynamics: Right atrial pressure was 15. Right ventricular pressure was 50/15. Pulmonary artery pressure was 50/30. End-diastolic pressure was 25-30. Left ventricular end-diastolic pressure was 25. Aortic blood pressure was 90/60. No gradient across the aortic valve on pullback. Cardiac output was approximately 4.2 by the thermodilution technique. Coronary anatomy: The RCA is a large vessel it is dominant. It is normal in its proximal mid and distal segments PDA and posterolateral branches are normal. : The left main is a large vessel it has an ostial 75-85% stenosis. It is hazy it is difficult to fully visualize. It gives off left anterior descending coronary artery. The left anterior descending is large and is free of significant disease. Diagonals and septals are normal. The circumflex is large with two obtuse marginal branches free of significant disease. Ventriculography in the GOODWIN projection shows an EF of 10%. Dilated left ventricle. Impression: Elevated left ventricular end-diastolic pressure at rest. Elevated capillary wedge pressure. Pulmonary hypertension. Severe left main disease. Markedly decreased left ventricular ejection fraction. Recommendations: Patient has a very high mortality. We will leave a Evans-Susy catheter in place. Optimize hemodynamics as much as possible. Consider high-risk angioplasty with Impella support if patient stabilizes. Poor overall prognosis family is made aware. ASSESSMENT: Repeated sustained ventricular fibrillation arrest requiring multiple external shocks, status post ROSC Obstructive coronary artery disease, severe left main/ostial disease (75-85% stenosis) Severe ischemic cardiomyopathy, LVEF of 15% 12/19/2024 Acute systolic heart failure, ischemic cardiomyopathy Previous history of methamphetamine abuse Acute kidney injury, improving Hypertension, history of Medical non-adherence Nicotine dependence Alcohol dependence Diabetes mellitus II Morbid obesity ELECTROPHYSIOLOGY SUGGESTIONS FOR MANAGEMENT: Recognizing presence of repeated sustained ventricular fibrillation resulting in multiple cardiac arrests in a patient found to have severe ischemic cardiomyopathy (LVEF of 15%) with presence of severe left main disease (75-85% stenosis), given high risk of mortality due to location and severity of newly discovered obstructive disease, recommendation from an EP perspective is to attempt HLOC transfer for pursue potential high-risk PCI at a facility that is equipped with impella and in-house CTS team. Recommendation during the interim is to proceed with Amiodarone and Lidocaine infusions as tolerated for rhythm management of VF. To proceed with close rate and rhythm surveillance and to sustain potassium levels greater than 4.0 as well as magnesium levels greater than 2.0. Proceed with optimized medical therapy and aggressive risk factor modification as concurrent conditions permit. Proceed with vasopressor therapy as warranted to sustain MAP greater than 65mmHg. Plan to wean vasopressors as hemodynamics permit. Recommend initiation of GDMT for systolic heart failure upon stabilization. Proceed with Heparin infusion as for now. Aspirin 81mg daily as well as Atorvastatin for further risk reduction. Proceed with empiric IV antibiotic therapy as managed by primary team. Pulmonary consulted for ventilator management/follow up recommendations. Await requested 2D Echocardiogram findings. To proceed with the above mentioned plan. To determine goals of care with daughter/family. Remainder of cardiac management as per Interventional Cardiology services. Will proceed to follow from an EP perspective. Proceed with close observation for overt signs of fluid overload Proceed with strict intakes, outputs, and daily weights Proceed with close rate and rhythm surveillance Proceed with close hemodynamic surveillance Proceed with optimized blood pressure control Transfuse to sustain HGB level above 7.0 Sustain Magnesium level greater than 2.0 Sustain Potassium level greater than 4.0 Follow up renal function and electrolytes Management within the ICU Follow up client insights consultant recommendations Will proceed to follow from a cardiac perspective Further recommendations per clinical progression All available diagnostic labs, EKG's, and images were personally reviewed Patient's status, findings, and plan of care was reviewed and discussed with supervising physician Dr. Solomon, who is in agreement with current plan of care. Plan of care discussed with and agreed upon by family / primary RN Prognosis: Poor given multitude of comorbid conditions Thank you for allowing me to participate in the care of this patient. Further recommendations based on patients clinical course and progression, primary attending, and other consultants. Will continue to follow with primary attending. If you have any questions or concerns, please do not hesitate to contact me. A total of 75 minutes was spent reviewing the patient record, examining the patient, making a diagnostic and therapeutic plan, discussing this plan with medical personnel, following up on diagnostic studies and following the patient for clinical stability excluding any and all procedures. At least 50% of this time was spent in direct, [id number] contact. Plan discussed with: Other (jeanie cuevas ) AYESHA POLK Dec 25, 2024 13:29
--- NOTE | 2024-12-25 13:49 | DVHPN2 ---
Progress Note - Dictate Date Seen: Dec 25, 2024 Has the PT tested + for MRSA If YES, has PT been informed?: No Medical Necessity Reason Pt with a Central, PICC or Fol: Yes The following are medically ne: Central Line Reason for goldstein catheter: Strict I&O vital signs Vital Sign Date Time Temp Pulse Resp B/P (MAP) Pulse Ox O2 Delivery O2 Flow Rate FiO2 12/25/24 13:18 67 22 108/65 (79) 98 50 12/25/24 12:00 Mechanical Ventilator+ 12/25/24 12:00 97.9 97.9 Total Intake and Output 12/24/24 12/24/24 12/25/24 15:00 23:00 07:00 Intake Total 1179.34 ml 793.679 ml 1040.018 ml Balance 1179.34 ml 793.679 ml 1040.018 ml medications Current Medications Medications Dose Ordered Sig/Maclolm Route Start Time Stop Time Status Last Admin Dose Admin Norepinephrine Bitartrate 32 mg/ Sodium Chloride 250 ml @ 0.938 mls/ hr Q24H IV 12/23/24 17:30 12/24/24 13:06 12.188 MLS/HR Propofol 100 ml @ 3.9 mls/hr Q24H IV 12/23/24 18:30 12/25/24 12:22 23.4 MLS/HR Midazolam HCl 50 ml @ 1 mls/hr Q24H IV 12/23/24 18:30 12/25/24 13:06 15 MLS/HR Pantoprazole Sodium 40 mg DAILY IV 12/24/24 10:00 12/25/24 09:53 40 MG Vasopressin 20 units/Sodium Chloride 100 ml @ 9 mls/hr Q11H7M IV 12/23/24 18:45 12/24/24 19:28 9 MLS/HR Amiodarone HCL/ Dextrose 200 ml @ 16.66 mls/ hr Q12H IV 12/24/24 03:00 12/25/24 11:54 16.66 MLS/HR Fentanyl Citrate 250 ml @ 2.5 mls/hr Q24H IV 12/23/24 22:45 Vancomycin HCl 0 ml @ 0 mls/hr UD IV 12/23/24 23:45 Heparin Sodium/ Dextrose 250 ml @ 15.6 mls/hr Q16H2M IV 12/24/24 07:45 UNV Vancomycin HCl 250 ml @ 250 mls/hr Q12H IV 12/24/24 13:00 12/25/24 12:52 250 MLS/HR Heparin Sodium/ Dextrose 250 ml @ 10 mls/hr Q24H IV 12/24/24 09:15 12/25/24 00:17 10 MLS/HR Aspirin 81 mg DAILY PO 12/25/24 10:00 12/25/24 09:53 81 MG Atorvastatin Calcium 40 mg HS PO 12/24/24 22:00 12/24/24 23:25 40 MG Lidocaine HCl 500 ml @ 15 mls/hr Q24H IV 12/24/24 07:00 12/25/24 09:52 30 MLS/HR Furosemide 40 mg BIDD IV 12/25/24 06:00 12/25/24 06:20 40 MG Enteral Nutritional Formula 1,000 ml 30ML/HR GT 12/25/24 10:15 Cefepime HCl 50 ml @ 12.5 mls/hr Q8H IV 12/25/24 18:00 laboratory and microbiology Laboratory Tests 12/25/24 03:20 Test 12/25/24 03:20 Range/Units Serum Glucose 155 H 74-106 mg/dL Assessment/Plan 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 Acute hypoxemic respiratory failure Recurrent ventricular arrhythmias Congestive heart failure Cardiomyopathy Patient transferred from [facility] Seen and examined in the ICU Currently sedated Amiodarone drip Lidocaine drip Ver[place]-Susy placed Wedge 12 mmHg Pulmonary artery catheter appears to be inserted too far Recommend retracting catheter by a couple centimeters Chest x-ray Hardware placed correctly Pulmonary congestion Imaging studies reviewed Management plan Status post angiogram left heart catheterization Reveal severe triple vessel ischemic disease Not amenable to angioplasty Continue vent support Antiarrhythmics Follow up on ABG Daily x-rays adjust vent settings monitor renal function replace lytes gi and dvt prop management per Card May require transfer for [facility] crit care time 35 min Plan discussed with: Other (Rn) GREGG AVILEZ MD Dec 25, 2024 13:49
[2024-12-25 14:05] LABS: Potassium 4.2 mmol/L (3.5-5.1)
[2024-12-25 14:11] LABS: Magnesium 2.0 mg/dL (1.6-2.6)
--- NOTE | 2024-12-25 15:35 | DVHDSRES ---
Discharge Summary Date of Admission Resident Creating Document: RENATO BARTLETT RESIDENT Dec 23, 2024 at 15:45 Date of Discharge: Dec 25, 2024 Admitting Diagnosis Cardiogenic Shock Labs/Diagnostic Data: Laboratory Results Test 12/25/24 13:35 12/25/24 11:09 12/25/24 06:26 12/25/24 03:20 Potassium Level 4.2 mmol/L (3.5-5.1) Magnesium Level 2.0 mg/dL (1.6-2.6) Prothrombin Time 12.3 sec (9.3-11.8) Prothrombin Time INR 1.18 (0.9-1.15) Activated Partial Thromboplast Time 51.3 SEC (24.5-34.5) Lactic Acid Level 1.3 mmol/L (0.4-2.0) Vancomycin Level Trough 17.9 ug/mL (5-10) Blood Gas Specimen Type Arterial Blood Gas Sample Site Arterial line Blood Gas Patient Temperature 37.0 Arterial Blood Date Drawn [id number] Arterial Blood pH 7.408 (7.350-7.450) Arterial Blood Partial Pressure CO2 42.2 mmHg (32.0-45.0) Arterial Blood Partial Pressure O2 86.7 mmHg (83.0-108.0) Arterial Blood HCO3 26.0 mmol/L (21.0-28.0) Arterial Blood Oxygen Saturation 96.1 % (94.0-98.0) Arterial Blood Base Excess 1.1 mmol/L (-2.0-3.0) Arterial Blood Oxyhemoglobin 94.7 % (94.0-98.0) Arterial Blood Carboxyhemoglobin 1.2 % (0.5-1.5) Arterial Blood Methemoglobin 0.3 % (0.0-1.5) Lee Test N/a Blood Gas Total Hemoglobin 16.90 g/dL (12.0-16.0) Blood Gas Set Respiration Rate 22.0 Blood Gas Modality Vent - ac FiO2 % 60.0 Blood Gas Tidal Volume 450.0 Blood Gas PEEP or CPAP 5.0 White Blood Count 8.3 10^3/uL (4.4-10.8) Red Blood Count 3.86 10^6/uL (4.0-5.20) Hemoglobin 12.0 g/dL (12.2-16.2) Hematocrit 36.5 % (36.0-46.0) Mean Corpuscular Volume 94.8 fL (80.0-100.0) Mean Corpuscular Hemoglobin 31.1 pg (28.0-32.0) Mean Corpuscular Hemoglobin Concent 32.8 g/dL (32.0-36.0) Red Cell Distribution Width 17.9 % (11.8-14.3) Platelet Count 178 10^3/uL (140-450) Mean Platelet Volume 9.0 fL (6.9-10.8) Neutrophils (%) (Auto) 79.8 % (37.0-80.0) Lymphocytes (%) (Auto) 10.6 % (10.0-50.0) Monocytes (%) (Auto) 5.6 % (0.0-12.0) Eosinophils (%) (Auto) 3.1 % (0.0-7.0) Basophils (%) (Auto) 0.9 % (0.0-2.0) Neutrophils # (Auto) 6.6 10 ^3/uL (1.6-8.6) Lymphocytes # (Auto) 0.9 10 ^3/uL (0.4-5.4) Monocytes # (Auto) 0.5 10 ^3/uL (0-1.3) Eosinophils # (Auto) 0.3 10 ^3/uL (0-0.8) Basophils # (Auto) 0.1 10 ^3/uL (0-0.2) Nucleated Red Blood Cells 0.2 % Sodium Level 142 mmol/L (136-145) Chloride Level 102 mmol/L (98-107) Carbon Dioxide Level 29 mmol/L (20-31) Anion Gap 11 (5-15) Blood Urea Nitrogen 22 mg/dL (9-23) Creatinine 1.09 mg/dL (0.550-1.02) Glomerular Filtration Rate Calc 61 mL/min (>90) BUN/Creatinine Ratio 20.2 (10.0-20.0) Serum Glucose 155 mg/dL (74-106) Calcium Level 8.4 mg/dL (8.7-10.4) Total Bilirubin 1.8 mg/dL (0.2-1.0) Aspartate Amino Transferase (AST) 66 U/L (13-40) Alanine Aminotransferase (ALT) 25 U/L (7-40) Alkaline Phosphatase 111 U/L (46-116) Total Protein 6.1 g/dL (5.7-8.2) Albumin 2.9 g/dL (3.2-4.8) Test 12/24/24 22:36 12/24/24 22:27 12/24/24 16:15 12/24/24 02:30 Blood Gas Spontaneous Rate 22 Specimen Drawn By Leonardo alegria rt Urine Color Light-yellow (Yellow) Urine Clarity Clear (Clear) Urine pH 5.0 (5.0-9.0) Urine Specific Luckey 1.016 (1.001-1.035) Urine Protein Negative (Negative) Urine Ketones Negative (Negative) Urine Blood 1+ /uL (Negative) Urine Nitrite Negative (Negative) Urine Bilirubin Negative (Negative) Urine Urobilinogen Normal mg/dL (Negative) Urine Leukocyte Esterase Negative /uL (Negative) Urine RBC 6 /hpf (0 - 4) Urine Microscopic WBC 2 /HPF (0-5) Urine Squamous Epithelial Cells Few /hpf (<5) Urine Bacteria Few /hpf (None Seen) Urine Hyaline Casts Few /lpf (0 - 2) Urine Mucus Few (None Seen) Urine Glucose Normal mg/dL (Normal) Mixed Venous Blood PO2 41.3 mmHg (35.0-45.0) Mixed Venous Blood O2 Saturation 78.4 % (75.0-99.0) Mixed Venous Blood Oxyhemoglobin 77.1 % (60.0-80.0) Mixed Venous Bld Carboxyhemoglobin 1.5 % (0.0-3.9) Mixed Venous Blood Methemoglobin 0.1 % (0.0-0.5) Phosphorus Level 2.9 mg/dL (2.4-5.1) Test 12/23/24 19:50 12/23/24 16:46 12/23/24 16:24 Blood Gas Comments via pa swan-susy Triglycerides Level 152 mg/dL (< 150) Cholesterol Level 102 mg/dL (< 200) LDL Cholesterol 66 mg/dL (< 100) HDL Cholesterol 19 mg/dL (40-59) Thyroid Stimulating Hormone (TSH) 1.57 uIU/mL (0.55-4.78) POC Glucose 129 mg/dl (70-106) Other Laboratory Tests 12/25/24 13:35 12/25/24 03:20 Brief Hx & Hospital Course: 54-year-old female with a history of severe systolic heart failure, hypertension, type 2 diabetes mellitus, dyslipidemia, morbid obesity (BMI 46.3 kg/m), tobacco and alcohol use, and remote methamphetamine use was transferred from [facility] after suffering recurrent ventricular fibrillation arrests requiring CPR 3 with return of spontaneous circulation (ROSC).?Initial presentation at the outside facility included progressive bilateral lower extremity edema 2 months and dyspnea. Workup revealed acute decompensated heart failure with severely reduced ejection fraction and new deep vein thrombosis of the bilateral superficial femoral veins. During admission, she had multiple VF arrests and was subsequently transferred here for higher level of care and possible high-risk angioplasty with Impella support. Upon arrival, she was intubated, sedated, on norepinephrine and phenylephrine infusions, plus amiodarone and lidocaine drips for rhythm control. She was hemodynamically unstable, meeting criteria for cardiogenic and septic shock. II. HOSPITAL COURSE SUMMARY * Patient admitted to ICU on full mechanical ventilation (FiO? 50%, Vt 450 mL). * Vasopressors: Norepinephrine ? phenylephrine; goal MAP ? 65 mm Hg. * Antiarrhythmic drips: Amiodarone 0.5 mg/min and lidocaine 2 mg/min. * SwanGanz catheter placed via right IJ for continuous hemodynamic monitoring. * RA 15 mm Hg, RV 50/15, PA 50/30, PCWP 2530, CO ? 4.2 L/min, SVR ? 1280. * Left heart catheterization and coronary angiography (12/23/24): * Severe left main ostial stenosis 7585 %. * RCA dominant and normal. LAD and circumflex free of significant disease. * Left ventriculography EF ? 10 %, severe global hypokinesis. * Echocardiogram (12/19/24 @ [facility] [place]): EF ? 15 %, end-stage dilated cardiomyopathy with severe pulmonary hypertension (RVSP ? 41 mm Hg). * Diuresis: Lasix 40 mg IV b.i.d.; strict I/O; net negative goal > 1 L/day. * Anticoagulation: Heparin drip (protocol) for prior DVT and ACS rule-out. * Antibiotics: Cefepime + Vancomycin empiric for possible sepsis (see below for JEANNA / VMN). * Nutrition: NPO with tube feeds initiated; PPI (Protonix) for stress ulcer prophylaxis. * Lines/Tubes: Right IJ central line, right femoral Udell-Susy, left radial A- line, Shah catheter. * Consultations: Cardiology (Dr. Mercado), Electrophysiology (EP team Dr. Solomon), Pulmonary Critical Care , Nephrology, Nutrition, Social Work. Clinical Course and Decision for Transfer Despite maximal pressors, ventilatory support, and diuresis, patient remained in refractory cardiogenic shock with multi-organ dysfunction and poor EF (10 %). EP recommended transfer to [facility] for possible Impella-assisted PCI and advanced mechanical circulatory support (ECMO / IABP / surgical consult).?Family informed of guarded prognosis; accepted transfer. Consults/Reason for consult Cardiology (Dr. Mercado), Electrophysiology (EP team Dr. Solomon), Pulmonary Critical Care, Operations or Procedures Name of Procedure Performed Left heart catheterization right heart catheterization. Bilateral cine coronary angiography. Left ventriculography. Procedure Details Procedure Details: Prior local anesthesia with 2% lidocaine to the right groin and full informed consent obtained the patient was prepped and draped in usual fashion followed by placement of a six [place] sheath into the right femoral artery through which six [place] Kathleen catheters were used to cannulate both right and left coronary ostia and a six [place] pigtail was used for ventriculography. A six [place] sheath was advanced into the right femoral vein and a Udell-Susy catheter was advanced into the right atrium right ventricle pulmonary artery capillary wedge pressure positions where pressures were obtained and recorded. Cardiac outputs determined by the thermodilution technique in triplicate. O2 saturations were not obtained Hemodynamics: Right atrial pressure was 15. Right ventricular pressure was 50/15. Pulmonary artery pressure was 50/30. End-diastolic pressure was 25-30. Left ventricular end-diastolic pressure was 25. Aortic blood pressure was 90/60. No gradient across the aortic valve on pullback. Cardiac output was approximately 4.2 by the thermodilution technique. Coronary anatomy: The RCA is a large vessel it is dominant. It is normal in its proximal mid and distal segments PDA and posterolateral branches are normal. : The left main is a large vessel it has an ostial 75-85% stenosis. It is hazy it is difficult to fully visualize. It gives off left anterior descending coronary artery. The left anterior descending is large and is free of significant disease. Diagonals and septals are normal. The circumflex is large with two obtuse marginal branches free of significant disease. Ventriculography in the GOODWIN projection shows an EF of 10%. Dilated left ventricle. Impression: Elevated left ventricular end-diastolic pressure at rest. Elevated capillary wedge pressure. Pulmonary hypertension. Severe left main disease. Markedly decreased left ventricular ejection fraction. Recommendations: Patient has a very high mortality. We will leave a Udell-Susy catheter in place. Optimize hemodynamics as much as possible. Consider high- risk angioplasty with Impella support if patient stabilizes. Poor overall prognosis family is made aware. Condition Critical Disposition 2 Still a Patient Date of Service: Dec 23, 2024 Billing Provider: RONALDO MERCADO Sr., MD Cardiology Common Codes: 71577-[id number] INP/OBS CARE (High) Cardiology Procedure Codes: 42761-UHXM HEART CATH W/INTRA INJ, 04149-E/R & L HEART CATH FOR LVG, 54973-TFV & PLCMT OF FLOW DIR CATH Condition at Discharge: Critical Final Diagnosis/Problems List 1. Cardiogenic Shock * POA: Yes Status: Ongoing Acuity: Acute life-threatening * Severe left main CAD and end-stage ischemic cardiomyopathy (EF 10 %). 2. Ventricular Fibrillation Arrest with ROSC (Post-Cardiac Arrest Syndrome) * POA: Yes Status: Treated Acuity: Acute resolved arrest with ongoing post-ROSC . 3. Severe Coronary Artery Disease (Left Main Ostial 7585 % Stenosis) * POA: Yes Status: Ongoing & Treated Acuity: Chronic stable with acute exacerbation * Treatment: Diagnostic LHC and bilateral coronary angiography performed; no PCI attempted due to instability; planned transfer for high-risk PCI with Impella at [facility]. 4. Severe Ischemic Cardiomyopathy / Acute on Chronic HFrEF (EF 10 %) * POA: Yes Status: Ongoing Acuity: Acute on chronic systolic HF stage D 5. Acute Hypoxic Respiratory Failure secondary to Cardiogenic Shock * POA: Yes Status: Ongoing Acuity: Acute. 6. Pulmonary Hypertension (Type 2, Secondary to Left Heart Disease) * POA: Yes Status: Ongoing Acuity: Chronic with acute decompensation 7. Acute Kidney Injury (JEANNA due to Cardiorenal and Vancomycin-Induced Nephrotoxicity VMN) * POA: No Status: Ongoing & Treated Acuity: Acute 8. Severe Pulmonary Artery Hypertension * POA: Yes Status: Ongoing Acuity: Chronic severe * Hemodynamics: PA 50/30, mean 36 mm Hg. 9. Type 2 Diabetes Mellitus * POA: Yes Status: Ongoing & Treated Acuity: Chronic 10. Transaminitis likely secondary to congestive hepatopathy * POA: No Status: Ongoing Acuity: Acute 11. Morbid Obesity (BMI 46.3 kg/m) * POA: Yes Status: Ongoing Acuity: Chronic 12. Substance Use / Dependence (Alcohol and Remote Methamphetamine Use) * POA: Yes Status: Ongoing (Alcohol) / Resolved (Meth > 10 yrs ago) 13. Medical Non-Adherence * POA: Yes Status: Ongoing Discharge Disposition: Acute Care Facility Discharge Instruct/Medications Diet: See Comment Diet comment: Tube feeding with Glucerna Activity: Bed rest Follow Up/Referral: * Cardiology/Interventional: within 24 hours (Impella/PCI evaluation). * Electrophysiology: within 2448 hours for VF management. * Nephrology: within 24 hours for JEANNA monitoring and possible CRRT. * Pulmonary Critical Care: daily management. * Nutrition/Endocrine: within 48 hours for glucose and feeding plan. * Family Meeting: within 48 hours for prognosis and code status review. Medications: * Norepinephrine infusion titrate to MAP = 65 mmHg * Phenylephrine infusion titrate as needed * Amiodarone infusion 0.5 mg/min * Lidocaine infusion 2 mg/min * Heparin infusion per protocol * Furosemide 40 mg IV BID * Cefepime 2 g IV q8h * Protonix 40 mg IV daily * Insulin sliding scale * Potassium and magnesium replacement as needed * Vancomycin, Atorvastatin 40 , ASprin 81 mg Care Plan: Post-Transfer Management Plan (For [facility]) 1. Continue dual vasopressors; maintain MAP > 65 mmHg. 2. Continue amiodarone and lidocaine drips; titrate per EP. 3. Maintain SwanGanz; monitor RA, PA, PCWP, and CO trends. 4. Evaluate for Impella-supported PCI of left main lesion and potential ECMO. 5. Continue mechanical ventilation; daily weaning trials when stable. 6. Continue Lasix 40 mg IV BID for diuresis. 7. Continue heparin drip (DVT and LV thrombus prophylaxis). 8. Maintain K > 4.2, Mg > 2.2. 9. Monitor renal function; avoid nephrotoxins; consider CRRT if worsening. 10. Continue cefepime until cultures finalized. 11. Continue Protonix 40 mg IV daily for ulcer prophylaxis. 12. Continue insulin sliding scale. 13. Continue family updates and palliative involvement as needed. Medications on Transfer * Norepinephrine infusion titrate to MAP ? 65 mmHg * Phenylephrine infusion titrate as needed * Amiodarone infusion 0.5 mg/min * Lidocaine infusion 2 mg/min * Heparin infusion per protocol * Furosemide 40 mg IV BID * Cefepime 2 g IV q8h * Protonix 40 mg IV daily * Insulin sliding scale * Potassium and magnesium replacement as needed * Vancomycin Follow-Up to be Arranged at [facility] * Cardiology/Interventional: within 24 hours (Impella/PCI evaluation). * Electrophysiology: within 2448 hours for VF management. * Nephrology: within 24 hours for JEANNA monitoring and possible CRRT. * Pulmonary Critical Care: daily management. * Nutrition/Endocrine: within 48 hours for glucose and feeding plan. * Family Meeting: within 48 hours for prognosis and code status review. Discharge Statement: "Patient was advised to return to the ER or call 911 if any headaches, dizziness, shortness of breath, chest pain, abdominal pain, bleeding, fevers, or worsening of medical condition. Patient was counseled about treatment plan, medications, possible side effects, patientverbalized understanding. All questions were answered to the best of my ability. This discharge took greater then 30 minutes in planning, reviewing documentation, counseling the patient, and discussing with other team members." ASSESSMENT ASSESSMENT Hospital Course 54-year-old female with a history of severe systolic heart failure, hypertension, type 2 diabetes mellitus, dyslipidemia, morbid obesity (BMI 46.3 kg/m), tobacco and alcohol use, and remote methamphetamine use was transferred from [facility] after suffering recurrent ventricular fibrillation arrests requiring CPR 3 with return of spontaneous circulation (ROSC).?Initial presentation at the outside facility included progressive bilateral lower extremity edema 2 months and dyspnea. Workup revealed acute decompensated heart failure with severely reduced ejection fraction and new deep vein thrombosis of the bilateral superficial femoral veins. During admission, she had multiple VF arrests and was subsequently transferred here for higher level of care and possible high-risk angioplasty with Impella support. Upon arrival, she was intubated, sedated, on norepinephrine and phenylephrine infusions, plus amiodarone and lidocaine drips for rhythm control. She was hemodynamically unstable, meeting criteria for cardiogenic and septic shock. II. HOSPITAL COURSE SUMMARY * Patient admitted to ICU on full mechanical ventilation (FiO? 50%, Vt 450 mL). * Vasopressors: Norepinephrine ? phenylephrine; goal MAP ? 65 mm Hg. * Antiarrhythmic drips: Amiodarone 0.5 mg/min and lidocaine 2 mg/min. * SwanGanz catheter placed via right IJ for continuous hemodynamic monitoring. * RA 15 mm Hg, RV 50/15, PA 50/30, PCWP 2530, CO ? 4.2 L/min, SVR ? 1280. * Left heart catheterization and coronary angiography (12/23/24): * Severe left main ostial stenosis 7585 %. * RCA dominant and normal. LAD and circumflex free of significant disease. * Left ventriculography EF ? 10 %, severe global hypokinesis. * Echocardiogram (12/19/24 @ [facility] [place]): EF ? 15 %, end-stage dilated cardiomyopathy with severe pulmonary hypertension (RVSP ? 41 mm Hg). * Diuresis: Lasix 40 mg IV b.i.d.; strict I/O; net negative goal > 1 L/day. * Anticoagulation: Heparin drip (protocol) for prior DVT and ACS rule-out. * Antibiotics: Cefepime + Vancomycin empiric for possible sepsis (see below for JEANNA / VMN). * Nutrition: NPO with tube feeds initiated; PPI (Protonix) for stress ulcer prophylaxis. * Lines/Tubes: Right IJ central line, right femoral Udell-Susy, left radial A- line, Shah catheter. * Consultations: Cardiology (Dr. Mercado), Electrophysiology (EP team Dr. Solomon), Pulmonary Critical Care , Nephrology, Nutrition, Social Work. Clinical Course and Decision for Transfer Despite maximal pressors, ventilatory support, and diuresis, patient remained in refractory cardiogenic shock with multi-organ dysfunction and poor EF (10 %). EP recommended transfer to [facility] for possible Impella-assisted PCI and advanced mechanical circulatory support (ECMO / IABP / surgical consult).?Family informed of guarded prognosis; accepted transfer. Assessment 1. Cardiogenic Shock * POA: Yes Status: Ongoing Acuity: Acute life-threatening * Severe left main CAD and end-stage ischemic cardiomyopathy (EF 10 %). 2. Ventricular Fibrillation Arrest with ROSC (Post-Cardiac Arrest Syndrome) * POA: Yes Status: Treated Acuity: Acute resolved arrest with ongoing post-ROSC . 3. Severe Coronary Artery Disease (Left Main Ostial 7585 % Stenosis) * POA: Yes Status: Ongoing & Treated Acuity: Chronic stable with acute exacerbation * Treatment: Diagnostic LHC and bilateral coronary angiography performed; no PCI attempted due to instability; planned transfer for high-risk PCI with Impella at [facility]. 4. Severe Ischemic Cardiomyopathy / Acute on Chronic HFrEF (EF 10 %) * POA: Yes Status: Ongoing Acuity: Acute on chronic systolic HF stage D 5. Acute Hypoxic Respiratory Failure secondary to Cardiogenic Shock * POA: Yes Status: Ongoing Acuity: Acute. 6. Pulmonary Hypertension (Type 2, Secondary to Left Heart Disease) * POA: Yes Status: Ongoing Acuity: Chronic with acute decompensation 7. Acute Kidney Injury (JEANNA due to Cardiorenal and Vancomycin-Induced Nephrotoxicity VMN) * POA: No Status: Ongoing & Treated Acuity: Acute 8. Severe Pulmonary Artery Hypertension * POA: Yes Status: Ongoing Acuity: Chronic severe * Hemodynamics: PA 50/30, mean 36 mm Hg. 9. Type 2 Diabetes Mellitus * POA: Yes Status: Ongoing & Treated Acuity: Chronic 10. Transaminitis likely secondary to congestive hepatopathy * POA: No Status: Ongoing Acuity: Acute 11. Morbid Obesity (BMI 46.3 kg/m) * POA: Yes Status: Ongoing Acuity: Chronic 12. Substance Use / Dependence (Alcohol and Remote Methamphetamine Use) * POA: Yes Status: Ongoing (Alcohol) / Resolved (Meth > 10 yrs ago) 13. Medical Non-Adherence * POA: Yes Status: Ongoing Date of Service: Dec 25, 2024 Billing Provider: ALBERT ARNOLD RESIDENT ALBERT ARNOLD RESIDENT Dec 25, 2024 15:35
[2024-12-25] MEDS: CEFEPIME 1GM/50ML 50 ML IV SCH (17:57)
--- NOTE | 2024-12-27 18:34 | DVHSR ---
APPROVED REPORT EXAM: Two-dimensional and M-mode echocardiogram with Doppler and color Doppler. Blood Pressure: 97/57 mmHg INDICATION evaluate cardiac function RISK FACTORS Obesity: Height: 5'6, Weight: 289 DIMENSIONS LVDd5.2 (3.8-5.7cm)LA (2D)3.6 (1.9-4.0cm)Aortic Root3.3 (2.0-3.7cm) LVDs4.6 (2.5-4.0cm)LA (MM) (1.9-4.0cm)Aortic Cusp Exc2.0 (1.5-2.0cm) EF (%) 15.0 (55-70%)Rt. Atrium4.1 (1.9-4.0cm)Asc. Aorta cm IVSd0.8 (0.7-1.1cm)RV (D)4.9 (1.8-2.4cm) PWd1.0 (0.7-1.1cm) Mitral Valve MitralMitral Stenosis E wave0.74m/sMV Mean GR.mmHg A wave0.54m/sMV Peak GR.58mmHg E/A ratio1.42D MVAcm2 DECEL [id number] 1/2 [place] Aortic Valve Aortic ValveAortic Stenosis V10.71m/Magan Mean GR.4mmHg V21.22m/Magan Peak GR.6mmHg LVOT Diameter2.1 (1.8-2.4cm)Doppler AVA2.01cm2 Pulmonic Valve V21.03m/s Tricuspid Valve TR Velocity2.29m/s [id number] Other Information Quality : Technically LimitedRhythm : Technically limited study due to body habitus. Conclusion Undetermined rhythm. Left atrial enlargement. LV enlargement with concentric LVH. Mild aortic root dilatation. The aortic and mitral valves appear to be within normal limits. The tricuspid and pulmonic normal. Left ventricular function is markedly diminished. EF is a proximally 10-15% with severe global hypok inesis. Markedly impaired contractility of the ventricle. Right ventricular function appears to be preserved. Doppler reveals moderate tricuspid regurgitation. RVSP of45 mmHg consistent with pulmonary hypertens ion. Trace aortic insufficiency. Mild pulmonic insufficiency. No pericardial effusion masses or vegetations.
== END 2024-12-25 22:49 | disposition short-term general hospital (02) | DRG 192 ==
LOC: ICU WEST 12-23 15:45
PROVIDERS: ADMIT Internal Medicine; ATTEND Internal Medicine
PROC: 4A023N8 Measurement of Cardiac Sampling and Pressure, Bilateral, Percutaneous Approach (ICD-10-PCS; principal; 2024-12-23)
PROC: 5A1945Z Respiratory Ventilation, 24-96 Consecutive Hours (ICD-10-PCS; 2024-12-23)
PROC: B211YZZ Fluoroscopy of Multiple Coronary Arteries using Other Contrast (ICD-10-PCS; 2024-12-23)
PROC: B215YZZ Fluoroscopy of Left Heart using Other Contrast (ICD-10-PCS; 2024-12-23)
PROC: 0BH17EZ Insertion of Endotracheal Airway into Trachea, Via Natural or Artificial Opening (ICD-10-PCS; 2024-12-23)
DX: I11.0 Hypertensive heart disease with heart failure (principal); I46.2 Cardiac arrest due to underlying cardiac condition; R57.0 Cardiogenic shock; N17.0 Acute kidney failure with tubular necrosis; J96.01 Acute respiratory failure with hypoxia; I49.01 Ventricular fibrillation; I27.21 Secondary pulmonary arterial hypertension; I25.10 Atherosclerotic heart disease of native coronary artery without angina pectoris; I50.23 Acute on chronic systolic (congestive) heart failure; E66.01 Morbid (severe) obesity due to excess calories; E11.9 Type 2 diabetes mellitus without complications; E78.5 Hyperlipidemia, unspecified; I25.5 Ischemic cardiomyopathy; I42.0 Dilated cardiomyopathy; F17.200 Nicotine dependence, unspecified, uncomplicated; F10.20 Alcohol dependence, uncomplicated; R74.01 Elevation of levels of liver transaminase levels; Z91.148 Patient's other noncompliance with medication regimen for other reason; Z83.3 Family history of diabetes mellitus; Z86.718 Personal history of other venous thrombosis and embolism; Z68.42 Body mass index [BMI] 45.0-49.9, adult
CPT/HCPCS: 36415; 36600; 71045; 80048; 80053; 80061; 80202; 81001; 82805; 82962; 83605; 83735; 84100; 84132; 84443; 85014; 85018; 85025; 85610; 85730; 86850; 86900; 86901; 87040; 87070; 87081; 87086; 87205; 93005; 93306; 93460; 93970; 94002; 94003; 94640; 99152; C1751; G0378; J2470; J2704; J3480; Q9967